=== PATIENT | female | born 1980 | race Caucasian/White ===

== ENCOUNTER → 2019-09-10 11:52 | Outpatient (CLI) | payer OTHER, SELFPAY ==
[2019-09-10 12:37] LABS: Add Manual Diff / Slide Review NO; Basophils Absolute Auto 0 /uL (0-100); Basophils Percent Auto 0.4 % (0-2); Eosinophils Absolute Auto 100 /uL (0-450); Eosinophils Percent Auto 1.1 % (2-4); Hematocrit 36.8 % (36-46); Hemoglobin 12.5 g/dL (12.0-16.0); Lymphocytes Absolute Auto 1800 /uL (1100-4500); Lymphocytes Percent Auto 21.8 % (25-40); Mean Corpuscular Hemoglobin 30.7 PG (26-34); Mean Corpuscular Volume 90.3 fL (80-100); Monocytes Absolute Auto 600 /uL (0-900); Monocytes Percent Auto 7.7 % (3-14); Neutrophils Absolute Auto 5700 /uL (1500-7000); Platelet Count 297 X10^3/uL (150-400); Red Blood Cell Count 4.08 X10^6/uL (4.0-5.2); White Blood Cell Count 8.2 X10^3/uL (4.5-11.0)
[2019-09-10 12:56] LABS: Appearance Urine UA CLEAR; Bilirubin Urine UA NEGATIVE (NEGATIVE); Color Urine UA YELLOW; Glucose Urine UA NEGATIVE (Negative); Ketones Urine UA NEGATIVE (NEGATIVE); Leukocyte Esterase Urine UA NEGATIVE (NEGATIVE); Nitrite Urine UA NEGATIVE (Negative); Occult Blood Urine UA NEGATIVE (Negative); Protein Urine UA NEGATIVE (Negative); Specific Gravity Urine UA 1.015 (1.000-1.035); Urobilinogen Urine UA 0.2 E.U./dL (0.2)
[2019-09-10 17:16] LABS: Hepatitis B Surface Antigen NEGATIVE s/c (NEGATIVE); Rubella Antibody IgG 12.6 IU/mL (>15)
[2019-09-10 17:25] LABS: HIV 1 & 2 Ab/Ag 4th Gen Combo NEGATIVE (NEGATIVE)
[2019-09-10 17:44] LABS: Hep C Virus Ab w/Reflex Quant NEGATIVE s/c (NEGATIVE)
[2019-09-13 21:16] LABS: RPR Screen Nonreactive (Nonreactive)
== END ==
PROVIDERS: Visit Provider Specialist
DX: Z34.01 Encounter for supervision of normal first pregnancy, first trimester (principal)
CPT/HCPCS: 36415; 80055; 81003; 86787; 86803; 86850; 86900; 86901; 87077; 87086; 87389

== ENCOUNTER → 2019-10-10 08:58 | Outpatient (CLI) | payer OTHER, SELFPAY | PROVIDERS: PCP Nurse Practitioner Family; Visit Provider Specialist | DX: O09.519 Supervision of elderly primigravida, unspecified trimester (principal); Z34.91 Encounter for supervision of normal pregnancy, unspecified, first trimester; Z3A.10 10 weeks gestation of pregnancy | CPT/HCPCS: 36415; 81420 ==

== ENCOUNTER → 2020-01-30 10:24 | Outpatient (CLI) | payer OTHER, SELFPAY ==
[2020-01-30 12:16] LABS: Hematocrit 34.3 % (36-46); Hemoglobin 11.5 g/dL (12.0-16.0)
[2020-01-30 13:16] LABS: GTT (PREG) 1 Hour PP 50gm Dose 141 mg/dL (76-139)
== END ==
PROVIDERS: PCP Nurse Practitioner Family; Referring Provider Specialist; Visit Provider Specialist
DX: Z34.82 Encounter for supervision of other normal pregnancy, second trimester (principal)
CPT/HCPCS: 36415; 82950; 85014; 85018

== ENCOUNTER → 2020-02-06 07:55 | Outpatient (CLI) | payer OTHER, SELFPAY ==
[2020-02-06 10:47] LABS: Glucose 2 Hour Gest 98 mg/dL (76-155)
[2020-02-06 10:55] LABS: Glucose 1 Hour Gest 179 mg/dL (76-180)
[2020-02-06 10:56] LABS: Glucose Fasting Gestational 74 mg/dL (76-95)
[2020-02-06 11:12] LABS: Glucose Tol Interp,Gestational INTERPRETATION
[2020-02-06 12:16] LABS: Glucose 3 Hour Gest 95 mg/dL (76-140)
== END ==
PROVIDERS: PCP Nurse Practitioner Family; Referring Provider Specialist; Visit Provider Specialist
DX: O99.810 Abnormal glucose complicating pregnancy (principal)
CPT/HCPCS: 36415; 82951; 82952

== ENCOUNTER → 2020-04-01 14:06 | Outpatient (CLI) | payer OTHER, SELFPAY ==
[2020-04-02 17:10] LABS: Strep Grp B PCR NEG for Grp B Strep
== END ==
PROVIDERS: PCP Nurse Practitioner Family; Visit Provider Specialist
DX: Z34.83 Encounter for supervision of other normal pregnancy, third trimester (principal); Z3A.36 36 weeks gestation of pregnancy
CPT/HCPCS: 87653

== ENCOUNTER 2020-04-30 14:22 | Outpatient (CLI) | payer OTHER, SELFPAY ==
--- NOTE | 2020-04-30 15:41 | PM.OBTRLD ---
Visit Information Visit Information Date of evaluation: 04/30/20 Primary OB Provider: Anisha Duarte Reason for Evaluation: Yes non-stress test non-stress test reason: other (Postdates) [facility] Medical History (Updated 04/30/20 @ 15:42 by Anisha Duarte MD) Abnormal Pap smear of cervix (Resolved ~2003) Anxiety (Acute) Bulging disc (Acute ~09/2013) Chicken pox (Resolved ~1985) Depression (Acute) Surgical History (Updated 09/10/19 @ 10:13 by Sierra Vargas, RN) History of colposcopy (Acute ~2011) [place] teeth removed (Acute ~1998) Family History (Updated 09/10/19 @ 10:10 by Sierra Vargas, LUCIAN) Father Type 2 diabetes mellitus Grandmother Breast cancer Lung cancer Grandmother Dementia Grandfather Cancer Mother Asthma Sister Asthma Social History marital status: unmarried,living together household members: significant other pets and animals: No education level: college (Psych) 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 Patient is scheduled for induction in 3 days. Precautions reviewed. Induction consent form signed OB Disposition: home
== END 2020-04-30 14:45 | disposition home or self-care (01) ==
LOC: LABOR 14:31 → OB 05-04 12:42
PROVIDERS: PCP Nurse Practitioner Family; Referring Provider Specialist; Visit Provider Specialist
DX: O48.0 Post-term pregnancy (principal); Z11.59 Encounter for screening for other viral diseases; Z3A.41 41 weeks gestation of pregnancy
CPT/HCPCS: 59025; 87635; G0378; G0379

== ENCOUNTER → 2020-04-30 15:01 | Outpatient (CLI) | payer OTHER, SELFPAY ==
[2020-05-01 18:32] LABS: COVID19 Sendout Not Detected (Not Detect)
== END ==
PROVIDERS: PCP Nurse Practitioner Family; Visit Provider Physician Assistant
DX: Z11.9 Encounter for screening for infectious and parasitic diseases, unspecified (principal)
CPT/HCPCS: 87635

== ENCOUNTER 2020-05-03 08:08 | Inpatient (IN) | payer OTHER, SELFPAY ==
[2020-05-03 08:59] LABS: Add Manual Diff / Slide Review NO; Basophils Absolute Auto 0 /uL (0-100); Basophils Percent Auto 0.4 % (0-2); Eosinophils Absolute Auto 200 /uL (0-450); Eosinophils Percent Auto 1.5 % (2-4); Hematocrit 36.3 % (36-46); Hemoglobin 12.2 g/dL (12.0-16.0); Lymphocytes Absolute Auto 1600 /uL (1100-4500); Lymphocytes Percent Auto 13.5 % (25-40); Mean Corpuscular HGB Conc 33.7 % (30-36); Mean Corpuscular Hemoglobin 29.8 PG (26-34); Mean Corpuscular Volume 88.5 fL (80-100); Monocytes Absolute Auto 1100 /uL (0-900); Monocytes Percent Auto 9.8 % (3-14); Neutrophils Absolute Auto 8700 /uL (1500-7000); Neutrophils Percent Auto 74.8 % (50-75); Platelet Count 281 X10^3/uL (150-400); White Blood Cell Count 11.6 X10^3/uL (4.5-11.0)
[2020-05-03] MEDS: LACTATED RINGERS 1,000 ML 100 ML IV ×3 (09:00→20:16)
--- NOTE | 2020-05-03 09:02 | P.HPOB_ITS ---
OB HPI Date/Time Date of admission: 05/03/20 Date Patient Seen: 05/03/20 Time Patient Seen: 09:07 History of Present Condition Chief complaint: OBSERVATION OF LABOR : 2 Para: 0 Estimated Date of Delivery: 04/24/20 Estimated Gestational Age (weeks): 41 Narrative: Ernestina Bhakta is a 39 year old female admitted for postdates induction Indications Indication for induction OB: post dates History of Present care: good care, initiated at week # (7), number of visits (12) and pounds weight gain (44) Dating criteria: LMP confirmed by 1st trimester US Ultrasounds: normal mid trimester US Obstetrical complications: none Medical complications: none Preadmission Labs Blood type: O (+) positive -: Antibody screen: negative, GBS status: negative, HBsAG: negative, HIV: negative and RPR/VDLR: negative -: Rubella: not immune and Varicella: immune HCAB: negative Cell-free DNA: Normal male 1 hr GTT: 141 3 hr GTT: 1 hr (179), 2 hr (98) and 3 hr (95) Fasting blood glucose: 74 Evaluation Evaluation Baseline heart rate: 130 Variability: Moderate (11-25) monitor accelerations: Present monitor decelerations: Absent Contraction Frequency (minutes): 0 Category of Tracing: Reactive Cervical dilation (cm): 0 Cervical effacement (%): 80 station: -1 Laboratory results: Laboratory Tests 05/03/20 08:45 WBC 11.6 H RBC 4.10 Hgb 12.2 Hct 36.3 MCV 88.5 MCH 29.8 MCHC 33.7 RDW 14.0 Plt Count 281 Neut % (Auto) 74.8 Lymph % (Auto) 13.5 L [place] % (Auto) 9.8 Eos % (Auto) 1.5 L Baso % (Auto) 0.4 Neut # (Auto) 8700 H Lymph # (Auto) 1600 [place] # (Auto) 1100 H Eos # (Auto) 200 Baso # (Auto) 0 PFSH Medical History (Updated 04/30/20 @ 15:42 by Anisha Duarte MD) Abnormal Pap smear of cervix (Resolved ~2003) Anxiety (Acute) Bulging disc (Acute ~09/2013) Chicken pox (Resolved ~1985) Depression (Acute) Surgical History (Updated 09/10/19 @ 10:13 by Sierra Vargas RN) History of colposcopy (Acute ~2011) [place] teeth removed (Acute ~1998) Family History (Updated 09/10/19 @ 10:10 by Sierra Vargas RN) Father Type 2 diabetes mellitus Grandmother Breast cancer Lung cancer Grandmother Dementia Grandfather Cancer Mother Asthma Sister Asthma Social History marital status: unmarried,living together household members: significant other pets and animals: No education level: college (Psych) 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) current occupational exposures/hazards: No special ruth needs: No leisure activities: exercise (hike) and reading Smoking Status: Former smoker Tobacco: How many years used: 10 second hand exposure: No alcohol intake: former (pre-) substance use type: does not use Meds Home Medications and Allergies Home Medications Medication Instructions Recorded Confirmed Type prenat.vits,marla,pal-jlkr-tdksw 1 tab PO DAILY 09/10/19 04/30/20 History Double Electric breast Pump and #1 each 11/21/19 04/30/20 Rx Supplies Allergies Allergy/AdvReac Type Severity Reaction Status Date / Time No Known Drug Allergies Allergy Verified 04/30/20 13:39 Review of Systems Review of Systems Narrative: Patient denies headaches, scotomata, epigastric pain. No leakage of fluid. Good movement. No contractions. ROS: Yes All systems reviewed with the patient and are negative except as otherwise documented Exam Vital Signs (past 8 hours): Blood pressure 119/72, pulse 72, temperature 36.8? Narrative Exam Narrative: HEENT exam within normal limits. Lungs are clear to auscultation percussion. Heart is regular rate and rhythm no S3-S4 or murmurs. Abdomen is gravid. Fetus is vertex. Extremities with trace edema and nontender. Objective Labs Result Diagrams: 05/03/20 08:45 Labs: Laboratory Results - last 24 hr 05/03/20 08:45 WBC 11.6 H RBC 4.10 Hgb 12.2 Hct 36.3 MCV 88.5 MCH 29.8 MCHC 33.7 RDW 14.0 Plt Count 281 Neut % (Auto) 74.8 Lymph % (Auto) 13.5 L [place] % (Auto) 9.8 Eos % (Auto) 1.5 L Baso % (Auto) 0.4 Neut # (Auto) 8700 H Lymph # (Auto) 1600 [place] # (Auto) 1100 H Eos # (Auto) 200 Baso # (Auto) 0 Assessment and Plan Assessment and Plan Assessment and Plan narrative: 41 week gestation admitted for postdates induction. Anticipate vaginal delivery.
[2020-05-03] MEDS: OXYTOCIN PREMIX 30 UNIT/500 ML PLAST..BAG IV (09:08)
[2020-05-03 09:16] VITALS: BP 119/72
[2020-05-03] MEDS: fentaNYL 100 MCG/2 ML INJ IV (17:01)
--- NOTE | 2020-05-03 17:21 | PM.OBPNLAB ---
Date/Time Date Patient Seen: 05/03/20 Time Patient Seen: 17:21 Pain Control Pain control: tolerating well (But now requesting epidural) Pelvic Exam Dilation (cm): 1 Effacement (%): 80 station: -1 Amniotic membrane status: Intact Comments: Until De Oliveira bulb placed and then she had rupture of membranes for thin meconium-stained fluid Contractions Contractions on admission: regular Monitor mode: External Pitocin rate (mU/min): 21 Contraction frequency (min): 3 Contraction duration (min): 1 Contraction pattern: Regular Contraction intensity: Moderate Status status: Category l Heart Rate Baseline: 130 Monitor Accelerations: Present Monitor Decelerations: Absent Monitor Variability: Moderate Assessment and Plan Assessment: induction ongoing Comments: Patient on Pitocin all day with no significant change in cervix except for perhaps from closed to 1 cm. Patient was finally getting more uncomfortable on 21 milliunits of Pitocin. Decision was made to try to place a De Oliveira bulb. Pitocin was turned off. Patient was given 50 micro g of fentanyl to help with discomfort. The De Oliveira bulb was placed and the balloon inflated with 60 cc of saline. When removing the catheter guide the patient had spontaneous rupture of membranes with thin meconium-stained fluid. Patient is now requesting epidural. Will re-evaluate starting Pitocin after De Oliveira bulb is expelled if not in active labor.
[2020-05-03] MEDS: FENT 2MCG/ML BUPIV 0.125% EPI 200 MCG/100 ML PLAST..BAG 20 MCG EPIDURAL (18:00)
--- NOTE | 2020-05-04 00:47 | PM.OBPNLAB ---
Date/Time Date Patient Seen: 05/04/20 Time Patient Seen: 00:48 Pain Control Pain control: epidural Pelvic Exam Dilation (cm): 6 Effacement (%): 80 station: -2 Amniotic membrane status: Ruptured Contractions Contractions on admission: regular Monitor mode: Internal Pitocin rate (mU/min): 9 Contraction frequency (min): 3 Contraction duration (min): 1 Contraction pattern: Regular Contraction intensity: Moderate Intrauterine tone measurement: 60 Status status: Category ll Heart Rate Baseline: 140 Monitor Accelerations: Present Monitor Decelerations: Late Monitor Variability: Moderate Assessment and Plan Assessment: other ( intolerance of labor, documented adequate contractions without change in cervix) Plan: Comments: Consent form was reviewed with the patient. Risk of damage to internal structures such as bowel, bladder, ureters that could require additional surgery to repair. Risk of infection. Risk of bleeding enough to require blood transfusion, which patient is agreeable to. Consent form signed.
--- NOTE | 2020-05-04 00:50 | PM.PREOP ---
Pre-operative Note COVID-19 COVID-19 status: Negative Result date/Date tested (Pos, Neg/Pending): 04/30/20 Interval Note History & Physical reviewed/Exam performed by Physician: Yes Changes to H&P: No H&P completed within 30 days and has changed as indicated here:: Failure to progress in labor with intolerance of labor
[2020-05-04] MEDS: CEFAZOLIN 2 GM/100 ML FROZ.PIGGY IV (01:25)
--- NOTE | 2020-05-04 01:47 | SUR.OPER ---
Supine on Padded OR bed, head on pillow, safety belt at thigh, arms secured on padded arm boards at <90 degrees abduction. Bump under right buttock. Legs uncrossed with pillow under knees, gel pad to heels, tape over blanket to lower legs.
--- NOTE | 2020-05-04 01:53 | SUR.OPER ---
VIABLE MALE INFANT DELIVERED AT 0140. PLACENTA AND CORD BLOOD TO OB WITH RN.
--- NOTE | 2020-05-04 02:21 | PM.OP.1 ---
Operative Date/Time/Diagnoses Date of procedure: 05/04/20 Time of procedure: 02:22 Pre-op diagnosis: 1st stage arrest with intolerance of labor Post-op diagnosis: same Procedure & Clinicians Procedure: Primary low-transverse section Same procedure as scheduled: Yes Indications: 1st stage arrest with intolerance of labor Surgeon: Anisha Duarte Click Yes if Unassisted: Yes Anesthesia Type: Epidural Operative Notes Findings: Normal tubes, ovaries, uterus. Viable male infant weighing 8 lb with Apgars of 9 and 9 Closure Type: primary Specimen(s): none sent Applied: catheter (De Oliveira) Estimated Blood Loss (mL): 200 Blood products transfused: none Procedure in detail: The patient was brought to the operating room where she underwent a bolus in her epidural for anesthesia. She was placed in a supine position with a left lateral tilt. A De Oliveira catheter was in place. Pulsatile stockings were placed and functional throughout the case. 2 g of Ancef were given IV prior to the incision. Warming was in place. The patient was prepped and draped in usual sterile fashion. A low transverse incision was made with a scalpel and the incision was carried down to the fascial layer which was incised transversely with scissors. The midline attachments are superiorly and inferiorly. Some bleeding was controlled Bovie. The rectus muscles were in the midline and the peritoneal incision was made with no damage to internal structures. The peritoneum was incised and superiorly and inferiorly. Bladder blade was placed and a bladder flap was developed and the bladder held away from the lower uterine segment. An incision was made in the uterus with the scalpel and the incision was extended with stretching. The head was elevated out of the abdomen and with fundal pressure the baby was delivered. The infant was bulb suctioned for clear fluid and handed off to the warmer. Cord blood was collected. The placenta delivered spontaneously with traction. The uterus was cleaned with clean laps. The uterine incision was closed in 2 layers of 0 chromic suture the first a running locking layer the second an imbricating layer. The bladder peritoneum was repaired with 2-0 Vicryl suture. The gutters were cleaned of any remaining fluids and ovaries and tubes were observed to be normal. Adequate hemostasis was noted. The perineum was closed with 2-0 Vicryl suture. The fascia layer was closed with 0 Vicryl suture with 2 stitches. The incision was irrigated and adequate hemostasis noted. The incision was closed with interrupted 3-0 Vicryl sutures and then a subcuticular stitch of 4-0 Vicryl suture. Steri-Strips were placed. The uterus was massaged to remove any clots. The patient went to recovery room in good condition. Counts of instruments and sponges were correct. Complications: none Post-operative Condition: stable Disposition: other ( Center) Plan for aftercare: Routine post section
[2020-05-04 02:22] VITALS: BP 120/66; PULSE 72; RESP 13; O2SAT 100
[2020-05-04 02:26] VITALS: BP 127/73; PULSE 69; RESP 14; O2SAT 99
[2020-05-04 08:16] VITALS: TEMP 37.6
[2020-05-04] MEDS: KETOROLAC 30 MG/ML VIAL IV ×3 (08:16→20:19)
[2020-05-04] MEDS: DOCUSATE 250 MG CAPSULE PO (08:17)
[2020-05-04] MEDS: LANOLIN OINT 7 GM 1 APPLIC TOP (08:17)
--- NOTE | 2020-05-04 09:27 | P.PNOB_ITS ---
Subjective - OB Subjective Patient comments: pain well controlled and tolerating diet [place] baby status: doing well [place] feeding status: exclusively breast feeding Narrative: This patient is postop day 0 status post a primary section for intolerance of induction of labor in the postdates period. The patient reports feeling well this morning with good pain control, tolerated regular diet for breakfast, foot movement and sensation returning. Lochia is moderate. Patient still has De Oliveira catheter in, not gotten out of bed. Date Patient Seen: 05/04/20 Time Patient Seen: 09:56 Exam Vital Signs (past 8 hours): 120/75, HR 74- 05/04/20 02:22 05/04/20 02:26 05/04/20 08:16 Temperature 99.6 F Pulse Rate 72 69 Respiratory Rate 13 14 Blood Pressure 120/66 127/73 Pulse Oximetry 100 99 Oxygen Delivery Method Room Air Const General: cooperative, healthy appearing and comfortable Resp Effort & Inspection: normal respiratory effort Auscultation: clear to auscultation bilaterally Cardio Rate: regular rate Rhythm: regular rhythm GI Inspection: distended (Soft, tympanic) Palpation: soft and No tender Other: Fundus firm, just below U. incision clean, dry, intact, covered by Aquacel. Extrem General: normal to inspection Objective Labs Result Diagrams: 05/03/20 08:45 Labs: Laboratory Results - last 24 hr 05/03/20 08:45 Blood Type O Positive Antibody Screen Negative Assessment & Plan Plan day: 0 plan OB: routine postop care Comments: This patient is recovering well the morning after her section, meeting postoperative goals appropriately. Continue routine postop C- section care. Patient encouraged to come for return of bowel function, counseled on regular instead and Tylenol use with breakthrough opioid. For voiding trial later today. Time Spent With Patient Time: Total time spent is greater than 50% in coordination of care (as documented) at patient's floor/unit and/or counseling patient: Time with patient: less than 15 minutes
[2020-05-04] MEDS: OXYCODONE/ACETAMINOPHEN 5/325 TABLET 2 TAB PO (20:36)
[2020-05-05] MEDS: OXYCODONE/ACETAMINOPHEN 5/325 TABLET 2 TAB PO ×4 (03:38→21:22)
[2020-05-05] MEDS: IBUPROFEN 600 MG TABLET PO ×3 (03:39→17:27)
[2020-05-05 06:14] LABS: Add Manual Diff / Slide Review NO; Basophils Absolute Auto 100 /uL (0-100); Basophils Percent Auto 0.4 % (0-2); Eosinophils Absolute Auto 200 /uL (0-450); Eosinophils Percent Auto 1.4 % (2-4); Hematocrit 29.8 % (36-46); Hemoglobin 10.1 g/dL (12.0-16.0); Lymphocytes Absolute Auto 1900 /uL (1100-4500); Lymphocytes Percent Auto 15.7 % (25-40); Mean Corpuscular HGB Conc 33.9 % (30-36); Mean Corpuscular Hemoglobin 30.1 PG (26-34); Mean Corpuscular Volume 88.9 fL (80-100); Monocytes Absolute Auto 1100 /uL (0-900); Monocytes Percent Auto 9.2 % (3-14); Neutrophils Absolute Auto 8900 /uL (1500-7000); Neutrophils Percent Auto 73.3 % (50-75); Platelet Count 206 X10^3/uL (150-400); Red Blood Cell Count 3.35 X10^6/uL (4.0-5.2); Red Cell Distribution Width 14.2 % (11.6-14.8); White Blood Cell Count 12.2 X10^3/uL (4.5-11.0)
[2020-05-05] MEDS: DOCUSATE 250 MG CAPSULE PO (08:46)
[2020-05-05] MEDS: ACETAMINOPHEN 325 MG TABLET 650 MG PO ×2 (11:29→21:22)
--- NOTE | 2020-05-05 17:11 | P.PNOB_ITS ---
Subjective - OB Subjective Patient comments: no complaints [place] feeding status: exclusively breast feeding Date Patient Seen: 05/05/20 Time Patient Seen: 17:11 Interval history: Post section day 1 Exam Vital Signs (past 8 hours): Blood pressure 131/80, pulse 81, temperature 98.2? Oxygen Delivery Method Room Air Narrative Exam Narrative: Abdomen is soft, nontender. Uterus is firm, mild tenderness. Dressing is clean, dry, intact. Mild lochia. Extremities with trace edema and nontender. Objective Labs Result Diagrams: 05/05/20 06:02 Labs: Laboratory Results - last 24 hr 05/05/20 06:02 WBC 12.2 H RBC 3.35 L Hgb 10.1 L Hct 29.8 L MCV 88.9 MCH 30.1 MCHC 33.9 RDW 14.2 Plt Count 206 Neut % (Auto) 73.3 Lymph % (Auto) 15.[address] [place] % (Auto) 9.2 Eos % (Auto) 1.4 L Baso % (Auto) 0.4 Neut # (Auto) 8900 H Lymph # (Auto) 1900 [place] # (Auto) 1100 H Eos # (Auto) 200 Baso # (Auto) 100 Assessment & Plan Assessment and Plan (1) Delivery by section using transverse incision of lower segment of uterus: Status: Acute (2) Acute blood loss anemia: Status: Acute Plan day: 1 plan OB: routine postop care Time Spent With Patient Time: Total time spent is greater than 50% in coordination of care (as doc umented) at patient's floor/unit and/or counseling patient: Time with patient: less than 15 minutes
[2020-05-06] MEDS: IBUPROFEN 600 MG TABLET PO ×2 (00:48→08:30)
[2020-05-06] MEDS: ACETAMINOPHEN 325 MG TABLET 650 MG PO (04:24)
[2020-05-06] MEDS: OXYCODONE/ACETAMINOPHEN 5/325 TABLET 2 TAB PO ×2 (04:25→08:31)
[2020-05-06 07:00] VITALS: BP 127/73; PULSE 69; RESP 14; TEMP 37.6
[2020-05-06] MEDS: DOCUSATE 250 MG CAPSULE PO (08:31)
--- NOTE | 2020-05-06 09:05 | PM.OBDS.1 ---
Discharge Providers Provider Date of admission: 05/03/20 08:08 Discharge Date: 05/06/20 Primary care physician: LAURA Gee Consults: 05/03/20 08:10 Consult to Anesthesiology Urgent Comment: Consulting Provider: Anesthesiologist Reason for consultation: Epidural Has provider been notified: No 05/04/20 03:13 Consult to Rn Plastic Surgery Routine Comment: Discharge provider: Anisha Duarte MD Summary Hospital Course Date Patient Seen: 05/06/20 Time Patient Seen: 09:06 Procedures: Pitocin induction, epidural catheter, primary low-transverse section Hospital Course: Patient was admitted at 41 weeks for induction for postdates. She was started on Pitocin. She had a De Oliveira bulb placed. She had a 1st stage arrest with intolerance of labor so proceeded with a primary low-transverse section. Patient is ambulatory and tolerating a regular diet. She is passing gas. Her pain is under control. She is urinating without difficulty Peripartum Data Infant Delivery Method: Section (Primary low-transverse section) complications: none [place] 1: Gender: Male Disposition of : home Discharge Diagnosis (1) Delivery by section using transverse incision of lower segment of uterus: Status: Acute (2) Acute blood loss anemia: Status: Acute Status at Discharge Cognitive/behavioral status at discharge: oriented Functional status at discharge: independent ambulation Overall status at discharge: patient is progressing back to baseline Time Spent with Patient Time attestation: Total time spent providing and/or coordinating discharge services: Time spent: Less than 30 minutes Objective Labs Result Diagrams: 05/05/20 06:02 Exam Vital Signs (past 8 hours): Blood pressure 114/67, pulse 70, temperature 97.9? Oxygen Delivery Method Room Air Narrative Exam Narrative: Abdomen is soft, nontender. Uterus is firm, at U, appropriately tender. Dressing is clean, dry, intact. Mild lochia. Extremities without edema and nontender. Patient's blood type is O positive, she is rubella equivalent and will receive rubella vaccine prior to discharge, she received Tdap in the 3rd trimester Discharge Plan Discharge Plan Patient Disposition: Home Discharge orders & Medications Prescriptions: New oxycodone-acetaminophen 5-325 mg Tablet 2 tab PO Q4HR PRN (Reason: Pain, Severe (7-10)) Qty: 40 RF: 0 ibuprofen 600 mg Tablet 600 mg PO Q6HR PRN (Reason: Fever/Mild Pain (1-3)) Qty: 30 RF: 0 Continued prenat.vits,marla,vey-hhwe-dmthr Tablet 1 tab PO DAILY RF: 0 (DME) Double Electric breast Pump and Supplies See Rx Instructions .ROUTE .MEDSUPPLY Qty: 1 RF: 0 Follow up/Referrals: Kandy Reza ARNP [Primary Care Provider] - Anisha Duarte MD [Physician] - 05/19/20 3:00 pm Diet/Activity/Treatments Diet: Regular Activity: Nothing in vagina or lifting over 20 lb for 6 weeks Skin/Wound/Dressing Care Report to your healthcare provider any signs of infection, such as:: chills, fever, increased pain and unusual redness Dressing: Remove dressing in 1 week Discharge Data Primary Care Provider: Kandy Reza
[2020-05-06] MEDS: MEASLES,MUMPS,RUBELLA VACC/PF 0.5 ML VIAL SUBCUT (13:30)
== END 2020-05-06 13:35 | disposition home or self-care (01) | DRG 787 ==
PROVIDERS: Admitting Provider Specialist; PCP Nurse Practitioner Family; Referring Provider Specialist; Visit Provider Specialist
PROC: 10D00Z1 Extraction of Products of Conception, Low, Open Approach (ICD-10-PCS; CPT 59514; principal; 2020-05-04 01:30)
DX: O48.0 Post-term pregnancy (principal); D62 Acute posthemorrhagic anemia; Z3A.41 41 weeks gestation of pregnancy; Z37.0 Single live birth; O99.02 Anemia complicating childbirth; O77.0 Labor and delivery complicated by meconium in amniotic fluid; O62.1 Secondary uterine inertia; O77.9 Labor and delivery complicated by fetal stress, unspecified
CPT/HCPCS: 01967; 01968; 36415; 59050; 59510; 85025; 86850; 86900; 86901; G0379; J0690; J1885; J2274; J2590; J3010

== ENCOUNTER → 2020-06-10 16:20 | Outpatient (CLI) | payer OTHER, SELFPAY ==
[2020-06-10 16:58] LABS: Add Manual Diff / Slide Review NO; Basophils Absolute Auto 0 /uL (0-100); Basophils Percent Auto 0.5 % (0-2); Eosinophils Absolute Auto 700 /uL (0-450); Hematocrit 38.8 % (36-46); Hemoglobin 12.9 g/dL (12.0-16.0); Lymphocytes Absolute Auto 2200 /uL (1100-4500); Mean Corpuscular HGB Conc 33.2 % (30-36); Mean Corpuscular Hemoglobin 29.5 PG (26-34); Mean Corpuscular Volume 88.9 fL (80-100); Monocytes Absolute Auto 600 /uL (0-900); Monocytes Percent Auto 7.8 % (3-14); Neutrophils Absolute Auto 4400 /uL (1500-7000); Neutrophils Percent Auto 55.7 % (50-75); Platelet Count 307 X10^3/uL (150-400); Red Blood Cell Count 4.36 X10^6/uL (4.0-5.2); Red Cell Distribution Width 13.6 % (11.6-14.8)
== END ==
PROVIDERS: PCP Nurse Practitioner Family; Referring Provider Specialist; Visit Provider Specialist
DX: O86.12 Endometritis following delivery (principal); D62 Acute posthemorrhagic anemia; R53.81 Other malaise
CPT/HCPCS: 36415; 85025; 87070; 87205

== ENCOUNTER → 2021-12-22 15:34 | Outpatient (CLI) | payer OTHER, SELFPAY ==
[2021-12-22 16:06] LABS: Appearance Urine UA CLEAR; Bilirubin Urine UA NEGATIVE (NEGATIVE); Color Urine UA YELLOW; Glucose Urine UA NEGATIVE (Negative); Ketones Urine UA NEGATIVE (NEGATIVE); Leukocyte Esterase Urine UA NEGATIVE (NEGATIVE); Nitrite Urine UA NEGATIVE (Negative); Occult Blood Urine UA NEGATIVE (Negative); Protein Urine UA NEGATIVE (Negative); Urobilinogen Urine UA 0.2 E.U./dL (0.2)
[2021-12-22 16:08] LABS: Add Manual Diff / Slide Review NO; Basophils Absolute Auto 0 /uL (0-100); Basophils Percent Auto 0.5 % (0-2); Eosinophils Absolute Auto 100 /uL (0-450); Eosinophils Percent Auto 1.5 % (2-4); Hematocrit 36.6 % (36-46); Hemoglobin 12.6 g/dL (12.0-16.0); Lymphocytes Absolute Auto 2000 /uL (1100-4500); Lymphocytes Percent Auto 21.8 % (25-40); Mean Corpuscular HGB Conc 34.5 % (30-36); Mean Corpuscular Hemoglobin 30.6 PG (26-34); Mean Corpuscular Volume 88.8 fL (80-100); Monocytes Absolute Auto 600 /uL (0-900); Monocytes Percent Auto 6.5 % (3-14); Neutrophils Absolute Auto 6400 /uL (1500-7000); Neutrophils Percent Auto 69.7 % (50-75); Platelet Count 303 X10^3/uL (150-400); Red Blood Cell Count 4.12 X10^6/uL (4.0-5.2); Red Cell Distribution Width 12.8 % (11.6-14.8); White Blood Cell Count 9.2 X10^3/uL (4.5-11.0)
[2021-12-22 17:21] LABS: Hepatitis B Surface Antigen NEGATIVE s/c (NEGATIVE); Rubella Antibody IgG 71.7 IU/mL (>15)
[2021-12-22 17:37] LABS: HIV 1 & 2 Ab/Ag 4th Gen Combo NEGATIVE (NEGATIVE); Hep C Virus Ab w/Reflex Quant NEGATIVE s/c (NEGATIVE)
[2021-12-23 04:46] LABS: Varicella IgG Antibody 493 index (Immune >165)
[2021-12-23 06:42] LABS: RPR Screen Non Reactive (Non Reactive)
== END ==
PROVIDERS: PCP Nurse Practitioner Family; Referring Provider Obstetrics & Gynecology; Visit Provider Obstetrics & Gynecology
DX: Z34.80 Encounter for supervision of other normal pregnancy, unspecified trimester (principal)
CPT/HCPCS: 36415; 80055; 81003; 86787; 86803; 86850; 86900; 86901; 87086; 87389

== ENCOUNTER → 2022-01-19 17:09 | Outpatient (CLI) | payer OTHER, SELFPAY ==
[2022-01-21 20:37] LABS: AFP Value 33.8 ng/mL (.); Gest Age on Col Date 17.1 weeks (.); Gestational Age Ultrasound (.); Insulin Dep Diabetes No (.); OSBR Risk 1IN 10000 (.); Results Report (.); Test Results *Screen Negative* (.)
== END ==
PROVIDERS: PCP Nurse Practitioner Family; Referring Provider Obstetrics & Gynecology; Visit Provider Obstetrics & Gynecology
DX: Z34.82 Encounter for supervision of other normal pregnancy, second trimester (principal); Z3A.16 16 weeks gestation of pregnancy
CPT/HCPCS: 36415; 82105

== ENCOUNTER → 2022-03-17 11:09 | Outpatient (CLI) | payer OTHER, SELFPAY ==
[2022-03-17 12:40] LABS: Hematocrit 33.4 % (36-46); Hemoglobin 11.2 g/dL (12.0-16.0)
[2022-03-17 13:22] LABS: GTT (PREG) 1 Hour PP 50gm Dose 133 mg/dL (76-139)
== END ==
PROVIDERS: PCP Nurse Practitioner Family; Referring Provider Obstetrics & Gynecology; Visit Provider Obstetrics & Gynecology
DX: Z34.82 Encounter for supervision of other normal pregnancy, second trimester (principal); Z3A.26 26 weeks gestation of pregnancy
CPT/HCPCS: 36415; 82950; 85014; 85018

== ENCOUNTER → 2022-06-07 08:57 | Outpatient (CLI) | payer OTHER, SELFPAY ==
[2022-06-08 12:05] LABS: Strep Grp B PCR NEG for Grp B Strep
== END ==
PROVIDERS: PCP Family Medicine; Visit Provider Obstetrics & Gynecology
DX: Z36.85 Encounter for antenatal screening for Streptococcus B (principal); Z3A.36 36 weeks gestation of pregnancy
CPT/HCPCS: 87653

== ENCOUNTER 2022-06-22 07:45 | Inpatient (IN) | payer OTHER, SELFPAY ==
[2022-06-22 08:46] LABS: Add Manual Diff / Slide Review NO; Basophils Absolute Auto 100 /uL (0-100); Basophils Percent Auto 0.5 % (0-2); Eosinophils Absolute Auto 100 /uL (0-450); Eosinophils Percent Auto 0.9 % (2-4); Hematocrit 34.7 % (36-46); Hemoglobin 11.8 g/dL (12.0-16.0); Lymphocytes Absolute Auto 2000 /uL (1100-4500); Lymphocytes Percent Auto 17.3 % (25-40); Mean Corpuscular HGB Conc 33.9 % (30-36); Mean Corpuscular Hemoglobin 29.1 PG (26-34); Monocytes Absolute Auto 800 /uL (0-900); Monocytes Percent Auto 7.3 % (3-14); Neutrophils Absolute Auto 8600 /uL (1500-7000); Platelet Count 266 X10^3/uL (150-400); Red Blood Cell Count 4.04 X10^6/uL (4.0-5.2); White Blood Cell Count 11.6 X10^3/uL (4.5-11.0)
[2022-06-22] MEDS: LACTATED RINGERS 1,000 ML 100 ML IV ×3 (09:04→12:09)
--- NOTE | 2022-06-22 09:16 | PM.OBHP.IH.1 ---
OB HPI Date/Time Date of admission: 06/22/22 Date Patient Seen: 06/22/22 Time Patient Seen: 09:19 History of Present Condition Chief complaint: Repeat C Section NASIR Calculator Estimated Delivery Date Method Current WG Current Estimate 07/01/22 LMP (Certain) 38w 5d Other Estimates 07/02/22 Ultrasound #1 38w 4d Estimated Gestational Age (weeks): 39 : 3 Para: 1 care: good care, initiated at week #, number of visits (10) and pounds weight gain (43) Dating criteria OB: LMP confirmed by 1st trimester US Ultrasounds: normal 1st trimester US and normal mid trimester US Obstetrical complications: none Medical complications OB: none Narrative: AMA Indications Operative indications ( section): previous uterine surgery Preadmission Labs Last OB Lab Results: Blood Type O Positive 12/22/21 15:44 Antibody Screen Negative 12/22/21 15:44 Hematocrit 34.7 % (36-46) L 06/22/22 08:35 Hemoglobin 11.8 g/dL (12.0-16.0) L 06/22/22 08:35 Hepatitis B Surface Antigen Negative s/c (NEGATIVE) 12/22/21 15:44 Hepatitis C Antibody Negative s/c (NEGATIVE) 12/22/21 15:44 Rubella Antibody 71.7 IU/mL (>15) 12/22/21 15:44 Varicella-Zoster IgG Antibody 493 index (Immune >165) 12/22/21 15:44 Glucose 1 Hour 133 mg/dL (76-139) 03/17/22 12:23 Group B Streptococcus (PCR) Neg for grp b strep 06/07/22 08:57 -: Chlamydia screen: negative, Gonorrhea screen: negative and Urine: negative -: PAP smear: Abnormal (ASCUS) Genetic Screens: Cell-free DNA: Normal and Alpha-fetoprotein: Normal External Labs -: Urine: negative Prior (ies) Past Pregnancies Del. Date GA/Weeks Labor Lgth Wt Sex Route Outcome Anesthesia Place Delv Breastfeed Preg Comp Name 05/09/05 8 elective [place] elective 05/04/20 42 10 8 lb Male live - full term epidural IH 18 none Dayday Delivery Date: 05/04/20 Last Updated by: Zoë Jorgensen R.N. Post term by 11 dys, 1st stage arrest with induction, SROM, Meconium staining, then distress Evaluation Evaluation Baseline heart rate: 135 Variability: Moderate (11-25) monitor accelerations: Present Monitor Decelerations: Absent [facility] Medical History Abnormal Pap smear of cervix (~2003) Anxiety Bulging disc (~09/2013) Chicken pox (~1985) Depression Surgical History History of History of colposcopy (~2011) [place] teeth removed (~1998) Family History Father Type 2 diabetes mellitus Grandmother Breast cancer Lung cancer Grandmother Dementia Grandfather Cancer Mother Asthma Sister Asthma Social History marital status: unmarried,living together number of children: 1 household members: significant other and children lives independently: Yes pets and animals: No education level: college (Psych) 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) current occupational exposures/hazards: No special ruth needs: No leisure activities: exercise (hike) and reading seatbelt use: always water heater temp set < 120 deg: Yes working smoke detector in home: Yes fire extinguisher in home: Yes carbon monox detector in home: Yes firearms in home: No do you feel safe at home: Yes Smoking Status: Never smoker Tobacco: How many years used: 10 second hand exposure: No alcohol intake: former (pre-) substance use type: does not use during the past year weight has: decreased > 10 lbs (had baby 18 months ago) well-balanced diet: daily or most days daily servings fruits/ve-4 caffeine: Yes (200mg limit) Type(s) of exercise: walking and irregular exercise Meds Home Medications and Allergies Home Medications Medication Instructions Recorded Confirmed Type prenat.vits,marla,mgx-zewi-gpdlq 1 tab PO DAILY 09/10/19 06/22/22 History Double Electric breast Pump and #1 ea 11/21/19 06/22/22 Rx Supplies Allergies Allergy/AdvReac Type Severity Reaction Status Date / Time No Known Drug Allergies Allergy Verified 06/14/22 07:59 OB Exam Narrative Exam Narrative: Generally: Patient is sitting up in bed, no acute distress Lungs: Clear to auscultation bilaterally Cardiovascular: Regular rate and rhythm Fundal height: 39 cm Estimated weight 7-1/2 lb Extremities: No edema, 1+ DTRs Objective Labs Result Diagrams: 06/22/22 08:35 Labs: Laboratory Results - last 24 hr 06/22/22 08:35 WBC 11.6 H RBC 4.04 Hgb 11.8 L Hct 34.7 L MCV 86.0 MCH 29.1 MCHC 33.9 RDW 14.0 Plt Count 266 Neut % (Auto) 74.0 Lymph % (Auto) 17.3 L [place] % (Auto) 7.3 Eos % (Auto) 0.9 L Baso % (Auto) 0.5 Neut # (Auto) 8600 H Lymph # (Auto) 2000 [place] # (Auto) 800 Eos # (Auto) 100 Baso # (Auto) 100 Assessment and Plan Assessment and Plan Assessment and Plan narrative: Assessment: 42-year-old 3 para 1 at an estimated gestational age of 39 weeks Previous section Plan: Repeat low-transverse section The risks, benefits, and alternatives to the procedure were explained to the patient. The risks including bleeding, infection, injury to the bowel, bladder, or ureters. She understands these risks and agrees to proceed. A full par Q was held and consent form was signed. Time Spent with Patient Total time spent with greater than 50% in coordination of care (as documented) at patient's floor/unit and/or counseling patient:: 15-24 minutes
[2022-06-22 09:41] LABS: COVID19 -Nasal RAPID Negative (Negative)
[2022-06-22] MEDS: CEFAZOLIN 2 GM/100 ML PREMIX 100 ML IV (09:58)
--- NOTE | 2022-06-22 10:30 | SUR.OPER ---
Supine on Padded OR bed, head on pillow, safety belt at thigh, arms secured on padded arm boards at <90 degrees abduction. Bump under right buttock. Legs uncrossed with pillow under knees, gel pad to heels, tape over blanket to lower legs. Gel pad placed under bilateral heels and gel pad between urinary catheter tubing and posterior thigh.
--- NOTE | 2022-06-22 10:30 | SUR.OPER ---
Viable baby girl delivered at 1019. Placenta delivered. Cord blood tubes X2 and placenta given to L&D RN.
[2022-06-22] MEDS: ACETAMINOPHEN IV 1,000 MG/100 ML VIAL 400 MG IV (10:33)
[2022-06-22 11:04] VITALS: BP 127/69; PULSE 58; RESP 16; TEMP 36.6; O2SAT 99
--- NOTE | 2022-06-22 11:10 | P.OP_ITS ---
Operative Date/Time/Diagnoses Date of procedure: 06/22/22 Time of procedure: 11:10 Pre-op diagnosis: Estimated gestational age of 39 weeks Previous section Post-op diagnosis: same Procedure & Clinicians Procedure: Repeat low-transverse section Same procedure as scheduled: Yes Indications: Estimated gestational age of 39 weeks Previous section Surgeon: Becky Mina Click Yes if Unassisted: No Content Management Consultant: Anuel Acosta Reason for Content Management Consultant: The product safety technical assistant was needed for retraction upon entry into the abdomen and uterus. He assisted with fundal pressure on delivery of the infant. He assisted with retraction and cutting of suture upon exiting the uterus and abdomen. He closed the contralateral fascia. Anesthesia Type: Spinal (With Duramorph) Operative Notes Findings: Live female infant in the JULIOCESAR presentation Loose nuchal cord x1 Normal tubes and ovaries Closure Type: primary Specimen(s): cord blood and placenta Intraoperative meds administered: Acetaminophen, Duramorph, Ketorolac and Pitocin Applied: Catheter (To continuous drainage) Estimated Blood Loss (mL): 400 Blood products transfused: none Procedure in detail: The patient was taken to the operating room where she was placed in the seated position. Spinal anesthesia with Duramorph was administered. The patient was then placed in the dorsal supine position with a leftward tilt. She was prepped and draped in the usual sterile fashion. A timeout was performed. After spinal analgesia was found to be adequate, a Pfannenstiel skin incision was made through the previous incision and carried through to the underlying layer fascia. The fascia was nicked in the midline, and the incision extended bilaterally with the Martinez scissors. The superior aspect of the fascial incision was grasped with a Prachi clamps, elevated, and the underlying rectus muscles dissected off sharply and bluntly. Attention was then turned to the inferior aspect of this incision which in a similar fashion was grasped with a Seneca clamps, elevated, and the underlying rectus muscles dissected off sharply and bluntly. The rectus muscles were in the midline. The peritoneum was identified, grasped between 2 hemostats, and entered sharply with the Metzenbaum scissors. This incision was extended superiorly and inferiorly with good visualization of the bladder. The bladder blade was inserted. The vesicouterine peritoneum was identified, grasped with the pickup, and entered sharply with the Metzenbaum scissors. This incision was extended bilaterally, and the bladder flap was created digitally. The bladder blade was reinserted. The lower uterine segment was incised in a transverse fashion with the scalpel. Upon entering the amniotic sac there was moderate amount of clear amniotic fluid. The infant's head was delivered with vacuum assistance. The nose and mouth were suctioned with bulb suction. The remainder of the body delivered without difficulty. The cord was double clamped and cut after 1 minute. The infant was handed off to waiting RN and RT. The placenta was expressed. The uterus was cleared of all clots and debris. The uterine incision was repaired with #1 chromic in a running interlocking fashion, and a second layer the same suture was used for an imbricating layer. There was a small area of bleeding in the middle of the incision. A lagele-rn-ftlof suture was placed for hemostasis. Hemostasis was achieved. The tubes and ovaries were examined and were found to be normal. The gutters were cleared of all clots and debris. The bladder flap was reapproximated using 2-0 Vicryl in a running fashion. The parietal peritoneum was closed using 2-0 Vicryl in a running fashion. The fascia was reapproximated using 0 Vicryl in a running fashion. The subcutaneous layer was copiously irrigated with warm normal saline. 5 simple interrupted sutures of 3- 0 Vicryl were placed to reapproximate the subcutaneous layer. The skin was closed with 4-0 Monocryl in a subcuticular fashion. Steri-Strips were placed. An Aquacel dressing was placed. The uterus was expressed of a small amount of old blood. Sponge, lap, and instrument counts were correct x-2. The patient tolerated the procedure well, and was taken to PACU in stable condition. Complications: none Baby 1: Infant Gender: Female Presentation: vertex Position: Left Occiput Anterior Placental Delivery Description: Expressed Cord Vessel Description: 3 Vessels, Nuchal Cord (X1), Loose, Reduced and Clamped/Cut (After 1 minute) score (1 min): 9 score (5 min): 9 weight: 6 lb 15 oz Post-operative Condition: stable Disposition: PACU Aftercare: routine postop
--- NOTE | 2022-06-22 11:10 | PM.PREOP ---
Pre-operative Note COVID-19 COVID-19 status: Negative Result date/Date tested (Pos, Neg/Pending): 06/22/22 Criteria for continued procedure: Non-surgical alternatives not available or appropriate per current SOC Interval Note History & Physical reviewed/Exam performed by Physician: Yes Changes to H&P: No H&P completed within 30 days and has changed as indicated here:: 06/22/22
[2022-06-22 11:14] VITALS: BP 124/68; PULSE 67; RESP 12; O2SAT 98
[2022-06-22 11:19] VITALS: BP 120/64; PULSE 76; RESP 18; O2SAT 99
[2022-06-22 11:24] VITALS: BP 123/66; PULSE 58; RESP 18; TEMP 36.2; O2SAT 100
[2022-06-22] MEDS: ACETAMINOPHEN 325 MG TABLET 650 MG PO ×2 (17:11→22:05)
[2022-06-22] MEDS: KETOROLAC 30 MG/ML VIAL IV ×2 (17:12→22:05)
[2022-06-23] MEDS: OXYCODONE IR 5 MG TABLET PO ×4 (01:30→13:55)
[2022-06-23] MEDS: ACETAMINOPHEN 325 MG TABLET 650 MG PO ×2 (05:10→11:36)
[2022-06-23] MEDS: KETOROLAC 30 MG/ML VIAL IV (05:11)
[2022-06-23 07:17] LABS: Hematocrit 31.5 % (36-46); Hemoglobin 10.6 g/dL (12.0-16.0)
[2022-06-23] MEDS: PRENATAL VIT,CALC/IRON/FOLIC 1 TABLET 1 TAB PO (09:14)
[2022-06-23] MEDS: DOCUSATE 100 MG CAPSULE 200 MG PO (09:14)
[2022-06-23] MEDS: IBUPROFEN 600 MG TABLET PO (11:35)
[2022-06-23 16:45] VITALS: BP 123/66; PULSE 58; RESP 18; TEMP 36.2
== END 2022-06-23 16:45 | disposition home or self-care (01) | DRG 788 ==
PROVIDERS: Admitting Provider Obstetrics & Gynecology; PCP Family Medicine; Referring Provider Obstetrics & Gynecology; Visit Provider Obstetrics & Gynecology
PROC: 10D00Z1 Extraction of Products of Conception, Low, Open Approach (ICD-10-PCS; CPT 59514; principal; 2022-06-22 09:45)
DX: O34.211 Maternal care for low transverse scar from previous cesarean delivery (principal); Z3A.39 39 weeks gestation of pregnancy; Z37.0 Single live birth; Z20.822 Contact with and (suspected) exposure to COVID-19
CPT/HCPCS: 36415; 59050; 59510; 59514; 85014; 85018; 85025; 86850; 86900; 86901; 87635; C9803; J0131; J0690; J1885; J2274; J2590; J3010

== ENCOUNTER → 2022-07-03 12:24 | Outpatient (CLI) | payer OTHER, SELFPAY ==
[2022-07-03 12:45] LABS: Add Manual Diff / Slide Review NO; Basophils Absolute Auto 0 /uL (0-100); Basophils Percent Auto 0.5 % (0-2); Eosinophils Absolute Auto 200 /uL (0-450); Eosinophils Percent Auto 3.1 % (2-4); Hematocrit 33.8 % (36-46); Hemoglobin 11.1 g/dL (12.0-16.0); Lymphocytes Absolute Auto 1700 /uL (1100-4500); Lymphocytes Percent Auto 21.9 % (25-40); Mean Corpuscular Hemoglobin 28.6 PG (26-34); Mean Corpuscular Volume 86.6 fL (80-100); Monocytes Absolute Auto 500 /uL (0-900); Monocytes Percent Auto 7.2 % (3-14); Neutrophils Absolute Auto 5100 /uL (1500-7000); Neutrophils Percent Auto 67.3 % (50-75); Platelet Count 397 X10^3/uL (150-400); Red Cell Distribution Width 14.2 % (11.6-14.8); White Blood Cell Count 7.6 X10^3/uL (4.5-11.0)
[2022-07-03 14:11] LABS: Alanine Aminotransferase 18 IU/L (<35); Aspartate Aminotransferase 20 IU/L (14-36); BUN Creatinine Ratio 22.9 (6-22); Blood Urea Nitrogen 11 mg/dL (7-17); Estimated Glomerular Filt Rate > 60 mL/min (>60); Uric Acid 4.6 mg/dL (2.5-6.2)
== END ==
PROVIDERS: PCP Family Medicine; Referring Provider Obstetrics & Gynecology; Visit Provider Obstetrics & Gynecology
DX: O16.5 Unspecified maternal hypertension, complicating the puerperium (principal)
CPT/HCPCS: 36415; 82565; 84450; 84460; 84520; 84550; 85025

== ENCOUNTER → 2023-12-31 13:05 | Outpatient (CLI) | payer OTHER, SELFPAY ==
[2023-12-31 14:15] LABS: Natera Collection Specimen Collected
[2023-12-31 14:57] LABS: Add Manual Diff / Slide Review NO; Basophils Absolute Auto 0 /uL (0-100); Basophils Percent Auto 0.3 % (0-2); Eosinophils Absolute Auto 100 /uL (0-450); Eosinophils Percent Auto 1.1 % (2-4); Hematocrit 36.1 % (36-46); Hemoglobin 12.3 g/dL (12.0-16.0); Lymphocytes Absolute Auto 1800 /uL (1100-4500); Lymphocytes Percent Auto 25.7 % (25-40); Mean Corpuscular Hemoglobin 30.2 PG (26-34); Mean Corpuscular Volume 88.7 fL (80-100); Monocytes Absolute Auto 500 /uL (0-900); Monocytes Percent Auto 7.4 % (3-14); Neutrophils Absolute Auto 4700 /uL (1500-7000); Neutrophils Percent Auto 65.5 % (50-75); Platelet Count 312 X10^3/uL (150-400); Red Blood Cell Count 4.07 X10^6/uL (4.0-5.2); Red Cell Distribution Width 13.8 % (11.6-14.8); White Blood Cell Count 7.1 X10^3/uL (4.5-11.0)
[2023-12-31 15:15] LABS: Alanine Aminotransferase 12 IU/L (<35); Aspartate Aminotransferase 18 IU/L (14-36); Blood Urea Nitrogen 8 mg/dL (7-17); Estimated Glomerular Filt Rate > 60 mL/min (>60); Uric Acid 2.7 mg/dL (2.5-6.2)
[2023-12-31 15:22] LABS: Urine N gonorrhoeae NOT DETECTED
[2023-12-31 15:54] LABS: Urine Chlamydia NOT DETECTED
[2023-12-31 16:33] LABS: Hepatitis B Surface Antigen NEGATIVE s/c (NEGATIVE); Rubella Antibody IgG 29.5 IU/mL (>15)
[2023-12-31 16:41] LABS: HIV 1 & 2 Ab/Ag 4th Gen Combo NEGATIVE (NEGATIVE); Hep C Virus Ab w/Reflex Quant NEGATIVE s/c (NEGATIVE)
[2024-01-01 09:15] LABS: RPR Screen Non Reactive (Non Reactive); Varicella IgG Antibody 690 index (Immune >165)
== END ==
LOC: LAB 13:06
PROVIDERS: PCP Family Medicine; Referring Provider Student in an Organized Health Care Education/Training Program; Visit Provider Student in an Organized Health Care Education/Training Program
DX: Z34.80 Encounter for supervision of other normal pregnancy, unspecified trimester (principal)
CPT/HCPCS: 80055; 82565; 84450; 84460; 84520; 84550; 86787; 86803; 86850; 86900; 86901; 87086; 87389; 87491; 87591

== ENCOUNTER → 2024-02-01 11:34 | Outpatient (CLI) | payer OTHER, SELFPAY ==
[2024-02-05 22:04] LABS: Gest Age on Col Date 19.1 weeks (.); Gestational Age EDD (.); Insulin Dep Diabetes No (.); OSBR Risk 1IN 10000 (.); Results Report (.); Test Results *Screen Negative* (.)
== END ==
PROVIDERS: PCP Family Medicine; Referring Provider Student in an Organized Health Care Education/Training Program; Visit Provider Student in an Organized Health Care Education/Training Program
DX: Z34.82 Encounter for supervision of other normal pregnancy, second trimester (principal); Z3A.16 16 weeks gestation of pregnancy
CPT/HCPCS: 36415; 82105

== ENCOUNTER → 2024-06-04 09:44 | Outpatient (CLI) | payer OTHER, SELFPAY | LOC: CAR 09:44 | PROVIDERS: PCP Family Medicine; Referring Provider Student in an Organized Health Care Education/Training Program; Visit Provider Student in an Organized Health Care Education/Training Program | DX: R00.2 Palpitations (principal) | CPT/HCPCS: 93242 ==

== ENCOUNTER → 2024-06-17 08:57 | Outpatient (CLI) | payer OTHER, SELFPAY ==
[2024-06-18 13:29] LABS: Strep Grp B PCR NEG for Grp B Strep
== END ==
PROVIDERS: PCP Family Medicine; Visit Provider Obstetrics & Gynecology
DX: Z34.83 Encounter for supervision of other normal pregnancy, third trimester (principal); Z3A.36 36 weeks gestation of pregnancy
CPT/HCPCS: 87653

== ENCOUNTER 2024-06-24 09:04 | Observation (INO) | payer OTHER, SELFPAY ==
[2024-06-24 10:05] LABS: Add Manual Diff / Slide Review NO; Basophils Absolute Auto 0 /uL (0-100); Basophils Percent Auto 0.3 % (0-2); Eosinophils Absolute Auto 200 /uL (0-450); Eosinophils Percent Auto 1.2 % (2-4); Hematocrit 35.4 % (36-46); Hemoglobin 12.1 g/dL (12.0-16.0); Lymphocytes Absolute Auto 1900 /uL (1100-4500); Lymphocytes Percent Auto 14.2 % (25-40); Mean Corpuscular HGB Conc 34.2 % (30-36); Mean Corpuscular Hemoglobin 30.1 PG (26-34); Monocytes Absolute Auto 1000 /uL (0-900); Monocytes Percent Auto 7.7 % (3-14); Neutrophils Absolute Auto 10200 /uL (1500-7000); Neutrophils Percent Auto 76.6 % (50-75); Platelet Count 286 X10^3/uL (150-400); Red Blood Cell Count 4.02 X10^6/uL (4.0-5.2); Red Cell Distribution Width 14.3 % (11.6-14.8); White Blood Cell Count 13.3 X10^3/uL (4.5-11.0)
[2024-06-24 10:16] LABS: Alanine Aminotransferase 13 IU/L (<35); Albumin 3.3 g/dL (3.5-5.0); Albumin Globulin Ratio 1.1 (1.0-2.8); Alkaline Phosphatase 115 U/L (38-126); Aspartate Aminotransferase 19 IU/L (14-36); BUN Creatinine Ratio 10.3 (6-22); Bilirubin Total 0.3 mg/dL (0.2-1.3); Blood Urea Nitrogen 4 mg/dL (7-17); Calcium 8.4 mg/dL (8.4-10.2); Carbon Dioxide 22 mmol/L (22-32); Chloride 107 mmol/L (98-107); Estimated Glomerular Filt Rate > 60 mL/min (>60); Glucose 83 mg/dL (70-100); HEMOLYSIS < 15 (0-50); Potassium 3.9 mmol/L (3.4-5.1); Sodium 133 mmol/L (137-145); Total Protein 6.3 g/dL (6.3-8.2)
[2024-06-24 10:51] LABS: Creatinine Urine Random 47.29 mg/dL; Protein (Total) Urine Random 10 mg/dL (0-12); Protein Creatinine Ratio Urine 0.21 GRAM/24H
== END 2024-06-24 10:59 | disposition home or self-care (01) ==
PROVIDERS: Admitting Provider Obstetrics & Gynecology; PCP Family Medicine; Referring Provider Obstetrics & Gynecology; Visit Provider Obstetrics & Gynecology
DX: O09.523 Supervision of elderly multigravida, third trimester (principal); Z3A.37 37 weeks gestation of pregnancy
CPT/HCPCS: 36415; 80053; 82570; 84156; 85025; G0378; G0379

== ENCOUNTER 2024-07-01 09:21 | Outpatient (CLI) | payer OTHER, SELFPAY | END 2024-07-01 09:55 | disposition home or self-care (01) | LOC: OB 07-02 10:26 | PROVIDERS: PCP Family Medicine; Referring Provider Obstetrics & Gynecology; Visit Provider Obstetrics & Gynecology | DX: O09.523 Supervision of elderly multigravida, third trimester (principal); Z3A.38 38 weeks gestation of pregnancy | CPT/HCPCS: 59025; G0378; G0379 ==

== ENCOUNTER 2024-07-11 05:41 | Inpatient (IN) | payer OTHER, SELFPAY ==
--- NOTE | 2024-07-11 | PATH_ITS ---
[facility] Accession Number: [id number] No. of containers..01 Tissue . 01 Material submitted: . fallopian tube - BILATERAL FALLOPIAN TUBES . 01 Diagnosis: Fallopian tubes, bilateral salpingectomy: Benign normal fallopian tubes with focal decidualized change of stromal cells. Negative for dysplasia, or malignancy. TXN 07/16/2024 1425 Local . 01 Electronically signed: . Tawfejanet Berry MD, Pathologist NPI- [id number] . 01 Gross description: . Received in formalin with two patient identifiers and bilateral fallopian tubes, are two unoriented fimbriated fallopian tubes (9.0 x 1.0 cm and 8.7 x 0.8 cm, respectively). Both tubes have violaceous smooth serosa with no cysts identified. The lumens are stellate and unremarkable. Harm Reduction Worker sections to include one-half of bisected fimbriae and cross sections are submitted as follows: . A1: Longer fallopian tube. A2: [place] fallopian tube. ([id number]) /MRV 07/15/2024 1716 Local . 01 Pathologist provided ICD-10: Z30.2 . 01 CPT . 462753 Specimen Comment: A courtesy copy of this report has been sent to [facility] Performed at: [address], [place], [place] [id number] MD Ashwin Maurice MD Phone: [phone]
[2024-07-11 06:35] LABS: Add Manual Diff / Slide Review NO; Basophils Absolute Auto 100 /uL (0-100); Basophils Percent Auto 0.4 % (0-2); Eosinophils Absolute Auto 200 /uL (0-450); Eosinophils Percent Auto 1.5 % (2-4); Hematocrit 37.1 % (36-46); Hemoglobin 12.6 g/dL (12.0-16.0); Lymphocytes Absolute Auto 2100 /uL (1100-4500); Lymphocytes Percent Auto 16.6 % (25-40); Mean Corpuscular HGB Conc 33.9 % (30-36); Mean Corpuscular Hemoglobin 30.2 PG (26-34); Mean Corpuscular Volume 89.1 fL (80-100); Monocytes Absolute Auto 900 /uL (0-900); Monocytes Percent Auto 7.5 % (3-14); Neutrophils Absolute Auto 9200 /uL (1500-7000); Platelet Count 274 X10^3/uL (150-400); Red Blood Cell Count 4.16 X10^6/uL (4.0-5.2); Red Cell Distribution Width 14.6 % (11.6-14.8); White Blood Cell Count 12.4 X10^3/uL (4.5-11.0)
[2024-07-11] MEDS: CITRIC ACID/SODIUM CITRATE 15 ML SOLUTION 30 ML PO (07:10)
--- NOTE | 2024-07-11 07:23 | PM.OBHP.1 ---
OB HPI Date/Time Date of admission: 07/11/24 Date Patient Seen: 07/11/24 Time Patient Seen: 07:31 History of Present Condition Chief complaint: Section : 4 Para: 2 Estimated Date of Delivery: 07/13/24 Estimated Gestational Age (weeks): 39w5d Narrative: Ernestina Bhakta is a 44 year old female at 39w5d by early first trimester dating who presents for scheduled procedure, repeat section with undesired fertility. Pt has had regular routine PNC throughout , course notable for symptomatic heart palpitations for which pt underwent prolonged cardiac monitoring revealing intermittent SVT. No medication was started due to paroxysmal nature and patient has been asymptomatic since approximately 36wga with planned cardiology follow-up. PMHx notable for h/o prior CS x3, h/o PIH. Today pt states she is feeling well, denies VB, LOF, dysuria, ctx. Affirms desire to proceed with procedure as scheduled including bilateral salpingectomy for purposes of permanent surgical sterilization. Indications Operative indications ( section): previous uterine surgery (h/o prior CS x2) History of Present care: good care Dating criteria: LMP confirmed by 1st trimester US Ultrasounds: normal 1st trimester US and normal mid trimester US Obstetrical complications: none Medical complications: cardiovascular (paroxysmal SVT) Preadmission Labs Blood type: O (+) positive -: Antibody screen: negative, GBS status: negative, HBsAG: negative, HIV: negative, HSV 1: unknown, HSV 2: unknown and RPR/VDLR: negative -: Chlamydia screen: not detected and Gonorrhea screen: not detected -: Rubella: immune and Varicella: immune HCT: 37.1 HCAB: negative PAP: Normal Cell-free DNA: low-risk, XX 1 hr GTT: 133 Evaluation Evaluation Baseline heart rate: 135 Variability: Moderate (11-25) monitor accelerations: Present Monitor Decelerations: Absent Category of Tracing: Reactive Status: Category l PFSH Medical History (Updated 12/31/23 @ 14:08 by Joycelyn Gerardo DO) Chicken pox (~1985) Abnormal Pap smear of cervix (~2003) Depression Anxiety Bulging disc (~09/2013) Surgical History (Updated 12/07/23 @ 15:11 by Joycelyn Gerardo DO) History of D&C (~2004) History of History of colposcopy (~2011) [place] teeth removed (~1998) Family History (Updated 11/29/23 @ 13:42 by Lisette Ramesh RN) Father Type 2 diabetes mellitus Grandmother Breast cancer Lung cancer Grandmother Dementia Grandfather Metastatic melanoma Heart attack Mother Asthma Environmental allergies Osteoporosis Sister Asthma Social History marital status: unmarried,living together number of children: 2 household members: significant other and children lives independently: Yes caregiver/support person: Yes housing: house pets and animals: No education level: college (bachelor's degree) 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) current occupational exposures/hazards: No special ruth needs: No travel history: recent (domestic only) leisure activities: exercise and reading seatbelt use: always water heater temp set < 120 deg: Yes working smoke detector in home: Yes fire extinguisher in home: Yes carbon monox detector in home: Yes firearms in home: No do you feel safe at home: Yes Smoking Status: Former smoker Tobacco: How many years used: 10 second hand exposure: No alcohol intake: former (occasionally when not ) substance use type: does not use during the past year weight has: decreased > 10 lbs well-balanced diet: daily or most days daily servings fruits/ve-4 caffeine: Yes (1 cup coffee in AM) Type(s) of exercise: walking Meds Home Medications and Allergies Home Medications Medication Instructions Recorded Confirmed Type prenat.vits,marla,tgn-joxx-nhftc 1 tab PO DAILY 09/10/19 07/11/24 History Double Electric breast Pump and #1 ea 11/21/19 07/01/24 Rx Supplies aspirin 81 mg tablet,delayed 81 mg PO DAILY 06/24/24 07/11/24 History release (Adult Aspirin Regimen) Allergies Allergy/AdvReac Type Severity Reaction Status Date / Time No Known Drug Allergies Allergy Verified 07/11/24 06:18 Review of Systems Review of Systems ROS: Yes All systems reviewed with the patient and are negative except as otherwise documented OB Exam Vital signs Blood Pressure: 117/57 Pulse Rate: 65 Respiratory Rate: 18 HENMT Head: normal to inspection and normocephalic Mouth: moist mucous membranes Resp Effort & Inspection: normal respiratory effort and able to speak in complete sentences Cardio Rate: regular rate Extremities Lower extremity: Yes normal to inspection GI Other: gravid, bruna 7.5# cephalic Other: deferred Objective Labs 07/11/24 06:25 07/11/24 06:25 Labs: Laboratory Results - last 24 hr 07/11/24 06:25 WBC 12.4 H RBC 4.16 Hgb 12.6 Hct 37.1 MCV 89.1 MCH 30.2 MCHC 33.9 RDW 14.6 Plt Count 274 Neut % (Auto) 74.0 Lymph % (Auto) 16.6 L [place] % (Auto) 7.5 Eos % (Auto) 1.5 L Baso % (Auto) 0.4 Neut # (Auto) 9200 H Lymph # (Auto) 2100 [place] # (Auto) 900 Eos # (Auto) 200 Baso # (Auto) 100 Assessment and Plan Assessment and Plan Assessment and Plan narrative: 44yo [id number] at 39w5d D=first trimester US presents for scheduled RCS with bilateral salpingectomy Scheduled RCS with bilateral salpingectomy patient affirms desire to proceed with procedure including permanent surgical sterilization maternal VSS/afebrile, Cat 1 tracing CBC, T&S on admission PNL as above, rubella immune, GBS neg h/o maternal SVT antepartum, currently asymptomatic; anesthesia aware Patient is consented for section with bilateral salpingectomy. She additionally consents to transfusion of blood products as medically indicated. dispo: admit for scheduled procedure, anticipate dc to home POD2-3 pending postoperative clinical course Time-Based Coding :: [TOTAL MINUTES] spent with patient and on the chart (including review of chart, obtaining history, exam, reviewing outside data, placing orders, documenting exam and treatment plan, and counseling patient) on [DATE].
--- NOTE | 2024-07-11 07:23 | PM.PREOP ---
Pre-operative Note Interval Note History & Physical reviewed/Exam performed by Physician: Yes Changes to H&P: No H&P completed within 30 days and has changed as indicated here:: 07/11/24 ASA Class (for procedural sedation): II
[2024-07-11 07:48] LABS: Alanine Aminotransferase 15 IU/L (<35); Albumin 3.4 g/dL (3.5-5.0); Albumin Globulin Ratio 1.1 (1.0-2.8); Alkaline Phosphatase 140 U/L (38-126); Aspartate Aminotransferase 31 IU/L (14-36); BUN Creatinine Ratio 15.9 (6-22); Bilirubin Total 0.4 mg/dL (0.2-1.3); Blood Urea Nitrogen 7 mg/dL (7-17); Calcium 8.6 mg/dL (8.4-10.2); Carbon Dioxide 20 mmol/L (22-32); Chloride 107 mmol/L (98-107); Estimated Glomerular Filt Rate > 60 mL/min (>60); Glucose 84 mg/dL (70-100); HEMOLYSIS < 15 (0-50); Potassium 3.8 mmol/L (3.4-5.1); Sodium 134 mmol/L (137-145); Total Protein 6.4 g/dL (6.3-8.2)
[2024-07-11] MEDS: CEFAZOLIN 2 GM/100 ML PREMIX 100 ML IV (07:50)
--- NOTE | 2024-07-11 07:56 | SUR.OPER ---
Supine on padded OR bed, head on pillow, arms secured on padded arm boards at <90 degrees abduction, legs uncrossed, safety belt at thigh, tape over blanket over lower legs.
[2024-07-11 09:01] VITALS: BP 104/49; PULSE 63; RESP 14; TEMP 36.2; O2SAT 99
[2024-07-11 09:06] VITALS: BP 107/65; PULSE 73; RESP 12; O2SAT 99
[2024-07-11 09:10] VITALS: BP 106/61; PULSE 63; RESP 11; O2SAT 100
[2024-07-11 09:16] VITALS: BP 112/55; PULSE 69; RESP 11; O2SAT 97
--- NOTE | 2024-07-11 09:26 | P.OP_ITS ---
Operative Date/Time/Diagnoses Date of procedure: 07/11/24 Time of procedure: 08:00 Pre-op diagnosis: 1) IUP at 39w5d 2) h/o prior CS with indication for repeat 3) undesired fertility Post-op diagnosis: same Procedure & Clinicians Procedure: Repeat low transverse section with bilateral salpingectomy Same procedure as scheduled: Yes Indications: 1) IUP at 39w5d 2) h/o prior CS x2 with indication for repeat 3) undesired fertility, desired permanent surgical sterilization Surgeon: Bobbi Ovalle Bass Singer: Anisha Duarte Click Yes if Unassisted: No Anesthesia Type: Spinal Operative Notes Findings: vigorous liveborn female in cephalic presentation, nuchal cord x1 reduced very thin lower uterine segment grossly normal appearing bilateral adnexae Closure Type: primary Specimen(s): other (bilateral fallopian tubes ) Estimated Blood Loss (mL): 600 Blood products transfused: none Procedure in detail: Pt was taken to the operating room and transferred to OR table.? The spinal was placed per anesthesia.? The patient was placed in the supine position, prepped and draped in a sterile fashion.? Prior to incision the level of anesthesia was rechecked and found to be adequate.? A timeout was once again performed. A pfannensteil incision was made 2cm superior to the pubic symphysis in line with prior scar.? This incision was carried down sharply to the level of the rectus fascia with noted moderate scar consistent with prior procedure.? The fascia was incised sharply with knife and the incision was extended bilaterally and superiorly using albarran scissors. The superior border of the fascia was el evated with two Kiesha clamps and bluntly dissected off of the rectus muscles followed by incision of the median raphe with the knife.? Attention was then turned to the inferior border of the fascia which was dissected away from the underlying musculature in a similar manner down to the level of the pubic symphysis.? The rectus muscles were then in the midline and the peritoneum was identified.? The peritoneum was entered bluntly under direct visualization.? The peritoneal opening was then extended manually as well as with further sharp dissection seconadry to thick midline scar from prior reapproximation of median raphe.? The dye house wheel operator?s hand was inserted in the abdomen and the uterus was found to be in a moderate /dextro-rotated position. The bladder blade was then inserted. The vesicouterine peritoneum was identified, elevated using DeBakey forceps and incised in the midline using Metzenbaum scissors.? The incision was carried laterally and superiorly bilaterally.? A bladder flap was further developed digitally and the bladder blade was replaced.? Next, a low transverse incision was made in the uterus using the knife, noted very thin/tenuous quality of LEENA consistent with prior procedure.? The incision was extended laterally and superiorly bilaterally bluntly.? The dye house wheel operator?s hand was then inserted into the uterus to find an infant in the vertex OT position.? The bladder blade was removed and infant?s vertex was grasped, flexed and brought to the incision where the infant was delivered atraumatically using fundal pressure.? The cord was doubly clamped and cut.? The infant was then passed to waiting pediatricians.? The placenta was delivered via gentle traction with additional manual extraction as necessary; the placenta was then passed off the field.? The uterus was exteriorized and the uterine cavity was wiped of all clots and debris.? The bladder blade was reinserted and the hysterotomy incision was repaired with #0 vicryl in a running locked fashion, followed by a second #0 vicryl in an imbricating fashion.? Tubes, ovaries and adnexae were visualized and noted to be grossly normal in appearance.? Patient verbally affirmed desire to proceed with permanent surgical sterilization at this time and attention was turned to the the right fallopian tube. The fallopian tube was grasped with the bonny and elevated. The fallopian tube was then serially transected away from the mesosalpinx using the PowerSeal ligature device and amputated at the level of the cornua. Attention was then turned to the contralateral side where the same procedure was performed. Wound beds were visually inspected and noted to be hemostatic off of tension. The uterus was replaced into the abdomen without difficulty and the hysterotomy was noted to be hemostatic off of tension.? The rectus fascia was closed using #1 vicryl in a running fashion.? The incision was irrigated and hemostasis was achieved using the bovie.? The subcutaneous space was reapproximated using plain gut suture in a running fashion.? The skin was closed using 4-0 monocryl followed by application of steristrips and abdominal compression dressing.? All counts were correct x2.? The pt tolerated the procedure well and without difficulty. Fundal contents were expressed and fundus noted to be firm, level noted prior to patient transfer to PACU in stable condition.? Birthwgt 3470g, 8/9/7 (TTN, see peds documentation) Complications: none Post-operative Condition: stable Disposition: PACU Plan for aftercare: routine /postop
[2024-07-11] MEDS: ACETAMINOPHEN 325 MG TABLET 650 MG PO ×2 (12:40→18:49)
[2024-07-11] MEDS: KETOROLAC 30 MG/ML VIAL IV ×2 (14:36→20:19)
[2024-07-11 16:59] VITALS: BP 117/57; PULSE 65; RESP 18
[2024-07-12] MEDS: ACETAMINOPHEN 325 MG TABLET 650 MG PO ×5 (00:16→23:49)
[2024-07-12] MEDS: KETOROLAC 30 MG/ML VIAL IV (02:02)
[2024-07-12 07:35] LABS: Hematocrit 28.3 % (36-46); Hemoglobin 9.6 g/dL (12.0-16.0)
[2024-07-12] MEDS: IBUPROFEN 600 MG TABLET PO ×3 (07:45→20:07)
--- NOTE | 2024-07-12 09:10 | PM.OBPN.1 ---
Subjective - OB Subjective Patient comments: no complaints and pain well controlled [place] baby status: doing well and nursing well feeding status: exclusively breast feeding Narrative: 44 yo delivered via rLTCS +tubal ligation at 39w5d. Routine care, course noable for symptomatic heart palpitations for which patient underwent prolonged cardiac monitoring significant for intermittent SVT. No meds started due to paroxysmal nature. Pt has been asymptomatic since 36wks and plans to fu with cardiology . History significant for CSx 2 and pre-eclampsia. Date Patient Seen: 07/12/24 Time Patient Seen: 08:15 Interval history: Patient doing well this AM. Pain well controlled. Mild headache but did not sleep well overnight. Bleeding appropriate. Exam Vital Signs (past 8 hours): Oxygen Delivery Method Room Air Narrative Exam Narrative: NAD, breathing easily, fundus firm below umbilicus. Objective Labs 07/12/24 07:10 07/11/24 06:25 Labs: Laboratory Results - last 24 hr 07/12/24 07:10 Hgb 9.6 L Hct 28.3 L Assessment & Plan Plan day: 1 plan OB: routine postop care Comments: Blood pressures wnl and stable. No signs of pre-eclampsia. Hgb 12.6-->9.6, Hct 37.1-->28.3. Patient lives on [facility], will continue routine postop care and anticipate discharge tomorrow or Sunday. Time-Based Coding :: 30 minutes spent with patient and on the chart (including review of chart, obtaining history, exam, reviewing outside data, placing orders, documenting exam and treatment plan, and counseling patient) on 07/12.
[2024-07-12] MEDS: PRENATAL VIT,CALC/IRON/FOLIC 1 TABLET 1 TAB PO (11:25)
[2024-07-12] MEDS: OXYCODONE IR 5 MG TABLET PO ×2 (15:01→23:50)
[2024-07-13] MEDS: IBUPROFEN 600 MG TABLET PO ×2 (02:46→08:43)
[2024-07-13] MEDS: ACETAMINOPHEN 325 MG TABLET 650 MG PO (06:31)
[2024-07-13] MEDS: PRENATAL VIT,CALC/IRON/FOLIC 1 TABLET 1 TAB PO (08:43)
--- NOTE | 2024-07-13 09:23 | PM.OBDS.1 ---
Discharge Providers Provider Date of admission: 07/11/24 05:41 Discharge Date: 07/13/24 Primary care physician: Servando Peter DO Consults: 07/11/24 11:19 Consult to Senior Cytotechnologist Routine Comment: Discharge provider: Jane Scott MD Summary Hospital Course Date Patient Seen: 07/13/24 Time Patient Seen: 09:00 Diagnoses: S/p repeat delivery; term Hospital Course: 44 yo delivered via rLTCS +tubal ligation at 39w5d. Routine care, course notable for symptomatic heart palpitations for which patient underwent prolonged cardiac monitoring significant for intermittent SVT. No meds started due to paroxysmal nature. Pt has been asymptomatic since 36wks and plans to fu with cardiology . History significant for CSx 2 and pre-eclampsia. Patient recovered well from repeat delivery. Appropriate lochia. Blood pressures normal and stable. No headaches or vision changes. Pain well controlled. Incision clean/dry/intact. Peripartum Data Delivery Method: Section complications: none Status at Discharge Cognitive/behavioral status at discharge: oriented Functional status at discharge: independent ambulation Overall status at discharge: patient is back to baseline Time Spent with Patient Time attestation: Total time spent providing and/or coordinating discharge services: 30 minutes Time spent: Greater than 30 minutes Objective Labs 07/12/24 07:10 07/11/24 06:25 Exam Vital Signs (past 8 hours): Oxygen Delivery Method Room Air Narrative Exam Narrative: NAD. Fundus firm and below umbilicus. Incision clean/dry/intact. Discharge Plan Discharge Plan Patient Disposition: Home Discharge orders & Medications Prescriptions: New ibuprofen 800 mg tablet 800 mg PO Q8H PRN (Reason: pain) Qty: 30 0RF acetaminophen 500 mg capsule 500 mg PO Q6H PRN (Reason: pain) Qty: 30 0RF Continued prenat.vits,marla,ghe-xuld-uxwev Tablet 1 tab PO DAILY Discontinued aspirin [Adult Aspirin Regimen] 81 mg tablet,delayed release (DR/EC) 81 mg PO DAILY No Action (DME) Double Electric breast Pump and Supplies See Rx Instructions .ROUTE .MEDSUPPLY Qty: 1 0RF Rx Instructions: As directed for 99 months. Follow up/Referrals: Bobbi Ovalle MD [Physician] - Visit Report/Discharge Packet Stand Alone Forms: Patient Portal/API, Stroke Signs & Symptoms Discharge Data Primary Care Provider: Servando Peter
[2024-07-13 09:38] VITALS: BP 127/68; PULSE 85; RESP 16; TEMP 36.9
[2024-07-13] MEDS: OXYCODONE IR 5 MG TABLET PO (09:53)
== END 2024-07-13 10:55 | disposition home or self-care (01) | DRG 785 ==
PROVIDERS: Admitting Provider Obstetrics & Gynecology; PCP Family Medicine; Referring Provider Obstetrics & Gynecology; Visit Provider Obstetrics & Gynecology
PROC: 10D00Z1 Extraction of Products of Conception, Low, Open Approach (ICD-10-PCS; CPT 59514; principal; 2024-07-11 07:45)
DX: O34.211 Maternal care for low transverse scar from previous cesarean delivery (principal); Z3A.39 39 weeks gestation of pregnancy; Z37.0 Single live birth; Z30.2 Encounter for sterilization; Z67.40 Type O blood, Rh positive; Z86.79 Personal history of other diseases of the circulatory system; Z87.59 Personal history of other complications of pregnancy, childbirth and the puerperium
CPT/HCPCS: 59050; 80053; 85014; 85018; 85025; 86850; 86900; 86901; J0690; J1100; J1885; J2274; J2405

== ENCOUNTER 2024-08-13 11:13 | Emergency (ER) | payer OTHER, SELFPAY ==
[2024-08-13] VITALS (8 sets, daily range): BP systolic 106–129; BP diastolic 58–76; PULSE 67–73; RESP 14–19; TEMP 36.3; O2SAT 96–97; BMI 32.4
--- NOTE | 2024-08-13 11:29 | EKG_ITS ---
[address] [address] Test Date: 2024-08-13 Pat Name: Ernestina Bhakta Department: [facility] Room: Gender: Female Hospital Food Service Worker: CHRISTELLE : 1980 Requested By: Order Number: [id number] Reading MD: Jake Turcios Measurements Intervals [place] Rate: 66 P: 42 HI: 164 QRS: 48 QRSD: 96 T: 51 QT: 408 QTc: 427 Interpretive Statements Normal sinus rhythm with sinus arrhythmia Electronically Signed On 08-13-2024 19:04:00 PST by Jake Turcios
--- NOTE | 2024-08-13 12:21 | ED_ITS ---
HPI - Arrhythmia/Palpitations General Chief Complaint: Arrhythmia/Palpitations Stated Complaint: sent for an echocardiogram Time Seen by Provider: 08/13/24 11:31 Source: patient Mode of arrival: Ambulatory History of Present Illness HPI narrative: patient sent here by RENETTA Conteh, patient in her office. at bedside. Patient is 4 weeks. Was on nifedipine for high blood pressure after . Was instructed to stop nifedipine. Last dose yesterday. Patient was seen 2 days ago on an grand tower with emergency department for palpitations. At EKG blood work done. Was discharged home for outpatient echocardiogram. Patient is asymptomatic at this time. She was seen at the emergency department 2 days ago for palpitations. She did have bradycardia down in the 40s. No prior history of heart attack strokes or diabetes. Related Data Home Medications Medication Instructions Recorded Confirmed prenat.vits,marla,[id number] 1 tab PO DAILY 09/10/19 08/13/24 Previous Rx's Medication Instructions Recorded Double Electric breast Pump and #1 ea 11/21/19 Supplies nifedipine 30 mg tablet,extended 30 mg PO DAILY #30 tabs 07/16/24 release Allergies Allergy/AdvReac Type Severity Reaction Status Date / Time bee venom protein (honey bee) Allergy Severe Anaphylaxis Verified 08/13/24 11:27 Review of Systems Review of Systems Narrative: GENERAL: Negative chills, fatigue, malaise, fever, sweats. HEENT: Negative sinus pain, ear pain, sore throat RESPIRATORY: Negative dyspnea, cough CARDIOVASCULAR: Negative chest pain, Positivepalpitations GASTROINTESTINAL: Negative nausea, vomiting, abdominal pain : Negative dysuria, frequency, hematuria MUSCULOSKELETAL: Negative muscle or bony pain SKIN: Negative rash, skin lesions NEUROLOGIC: Negative weakness, numbness ROS Unobtainable: All systems reviewed & are unremarkable except as noted in HPI and below Patient History Medical History (Updated 08/13/24 @ 17:19 by Surinder Simon MD) Symptomatic bradycardia Chicken pox (~1985) Abnormal Pap smear of cervix (~2003) Depression Anxiety Bulging disc (~09/2013) Surgical History (Updated 12/07/23 @ 15:11 by Joycelyn Gerardo DO) History of D&C (~2004) History of History of colposcopy (~2011) [place] teeth removed (~1998) Family History (Updated 11/29/23 @ 13:42 by Lisette Ramesh RN) Father Type 2 diabetes mellitus Grandmother Breast cancer Lung cancer Grandmother Dementia Grandfather Metastatic melanoma Heart attack Mother Asthma Environmental allergies Osteoporosis Sister Asthma Social History marital status: unmarried,living together number of children: 2 household members: significant other and children lives independently: Yes caregiver/support person: Yes housing: house pets and animals: No education level: college (bachelor's degree) 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) current occupational exposures/hazards: No special ruth needs: No travel history: recent (domestic only) leisure activities: exercise and reading seatbelt use: always water heater temp set < 120 deg: Yes working smoke detector in home: Yes fire extinguisher in home: Yes carbon monox detector in home: Yes firearms in home: No do you feel safe at home: Yes Smoking Status: Former smoker Tobacco: How many years used: 10 second hand exposure: No alcohol intake: former (occasionally when not ) substance use type: does not use during the past year weight has: decreased > 10 lbs well-balanced diet: daily or most days daily servings fruits/ve-4 caffeine: Yes (1 cup coffee in AM) Type(s) of exercise: walking Smoking Status: Former smoker Substance Use Type: does not use Exam Narrative Exam Narrative: GENERAL: in no distress, not toxic not dyspneic HEAD: Normocephalic. EYES: Pupils equal round ENT: Mucous membranes moist. NECK: Trachea midline. CARDIOVASCULAR: Regular rate and rhythm RESPIRATORY: Clear to auscultation. Breath sounds equal bilaterally. No wheezes, rales, or rhonchi. GASTROINTESTINAL: Abdomen soft, non-tender EXTREMITIES: No gross deformities. no pitting edema of the ankles BACK: No flank tenderness. NEURO: AOx4. SKIN: Warm and dry PSYCH: Not anxious, is cooperative Initial Vital Signs Initial Vital Signs: Vital Signs Temperature 97.4 F L 08/13/24 11:19 Pulse Rate 73 08/13/24 11:19 Respiratory Rate 18 08/13/24 11:19 Blood Pressure 129/61 08/13/24 11:19 Pulse Oximetry 97 08/13/24 11:19 Oxygen Delivery Method Room Air 08/13/24 11:19 Course Orders Ordered: ED Orders 08/13/24 11:29 EKG-12 Lead Stat 08/13/24 12:21 EC echo doppler complete Stat 08/13/24 13:29 BNP [NT-proBNP (BNP-Adult 18+)] Stat Complete Blood Count AUTO DIFF Stat Comprehensive Metabolic Panel Stat Magnesium Stat TSH [Thyroid Stimulating Hormone] Stat Troponin & CK Cardiac Panel Stat Vital Signs Vital signs: Vital Signs - 8 hr 08/13/24 11:19 08/13/24 12:26 08/13/24 12:56 Temperature 97.4 F L Pulse Rate 73 69 70 Respiratory Rate 18 14 Blood Pressure 129/61 116/76 Pulse Oximetry 97 96 97 Oxygen Delivery Method Room Air Room Air 08/13/24 13:00 08/13/24 13:30 08/13/24 14:00 Temperature Pulse Rate 69 67 68 Respiratory Rate Blood Pressure Pulse Oximetry 97 96 97 Oxygen Delivery Method 08/13/24 14:17 08/13/24 14:17 Temperature Pulse Rate 69 Respiratory Rate Blood Pressure 106/58 L Pulse Oximetry 97 Oxygen Delivery Method MDM - Arrhythmia/Palpitations Lab Data 08/13/24 13:29 08/13/24 13:29 Labs: Lab Results 08/13/24 Range/Units 13:29 WBC 8.9 (4.5-11.0) X10^3/uL RBC 4.32 (4.0-5.2) X10^6/uL Hgb 12.5 (12.0-16.0) g/dL Hct 37.7 (36-46) % MCV 87.2 (80-100) fL MCH 28.8 (26-34) PG MCHC 33.1 (30-36) % RDW 13.7 (11.6-14.8) % Plt Count 423 H (150-400) X10^3/uL Neut % (Auto) 62.2 (50-75) % Lymph % (Auto) 24.5 L (25-40) % Davis % (Auto) 8.1 (3-14) % Eos % (Auto) 4.4 H (2-4) % Baso % (Auto) 0.8 (0-2) % Neut # (Auto) 5500 (0672-2712) /uL Lymph # (Auto) 2200 (9969-2877) /uL Davis # (Auto) 700 (0-900) /uL Eos # (Auto) 400 (0-450) /uL Baso # (Auto) 100 (0-100) /uL Sodium 139 (137-145) mmol/L Potassium 4.0 (3.4-5.1) mmol/L Chloride 105 (98-107) mmol/L Carbon Dioxide 25 (22-32) mmol/L BUN 13 (7-17) mg/dL Creatinine 0.64 (0.52-1.04) mg/dL Estimated GFR > 60 (>60) mL/min BUN/Creatinine Ratio 20.3 (6-22) Glucose 104 H (70-100) mg/dL Calcium 9.0 (8.4-10.2) mg/dL Magnesium 1.9 (1.6-2.3) mg/dL Total Bilirubin 0.4 (0.2-1.3) mg/dL AST 27 (14-36) IU/L ALT 29 (<35) IU/L Alkaline Phosphatase 90 (38-126) U/L Total Creatine Kinase 41 (30-135) U/L Troponin I < 0.012 (0.01-0.034) ng/mL NT-Pro-B Natriuret Pep < 20 (<125) pg/mL Total Protein 7.4 (6.3-8.2) g/dL Albumin 4.1 (3.5-5.0) g/dL Globulin 3.3 (1.7-4.1) g/dL Albumin/Globulin Ratio 1.2 (1.0-2.8) TSH 0.248 L (0.47-4.68) uIU/mL [facility] Narrative Medical decision making narrative: patient sent here by Dr. Ovalle, OBGYN, patient in her office. at bedside. Patient is 4 weeks. Was on nifedipine for high blood pressure after . Was instructed to stop nifedipine. Last dose yesterday. Patient was seen 2 days ago on an grand tower with emergency department for palpitations. At EKG blood work done. Was discharged home for outpatient echocardiogram. Patient is asymptomatic at this time. She was seen at the emergency department 2 days ago for palpitations. She did have bradycardia down in the 40s. No prior history of heart attack strokes or diabetes. After history and examEKG and echocardiogram ordered. Medical records requested to be faxed over. Holding on laboratory studies as patient just had lab work done 2 days ago [facility] Medical records reviewed: No recent visit here for this complaint. We did not receive faxed records from the [place] [facility] 2 days ago Differential considered: Includes but not limited to SVT bradycardia arrhythmia CHF Lab Test results independently reviewed as above. Pertinent findings: WBC 8.9 hemoglobin 12.5 hematocrit 37 sodium 139 potassium 4.0 BUN 13 creatinine 0.64 calcium 9.0 troponin less than 0.012 TSH 0.248 , BNP less than 20 Independently reviewed EKG normal sinus rhythm rate [address] elevation or depression Imaging studies independently reviewed: echocardiogram Consultations: I did speak with RENETTA Conteh that sent patient over here for echocardiogram. Echocardiogram was done to rule out CHF 5:[address] Ovalle echocardiogram results. Patient to follow up with thyroid results today as well. 5:12 p.[address].. Spoke with Cardiology Dr. Obrien, she has reviewed echocardiogram it is reassuring sinus bradycardia heart rate 48 -59, normal LV size and wall thickness normal wall motion and LV systolic function. Ejection fraction 55%. Normal chamber sizes Treatments: none indicated Re-evaluations: 5:15 p.m.. Updated patient and results. They are reassuring. No palpitations here. asymptomatic. Return precautions reviewed. exam is reassuring. They desire discharge home. Reviewed with the may need Holter monitoring outpatient basis. They agree. No new medications indicated. Updated patient thyroid studies that could be contributory to palpitations and she can follow up with her primary care as well. Discussion: appropriate for discharge home exam is reassuring. Return precautions reviewed with patient and . Not toxic at discharge. They desire discharge home. Diagnosis: Palpitation Discharge Plan Departure Patient Disposition: Home Clinical Impression: Palpitations Instructions: DI for Palpitations Activity Restrictions/Additional Instructions: your exam and laboratory studies imaging studies are reassuring. Please see your family doctor this week for re-evaluation and schedule Holter monitor for palpitations. Keep well hydrated. Return if worse if any questions or concerns. Prescriptions: No Action nifedipine 30 mg tablet extended release 30 mg PO DAILY Qty: 30 0RF prenat.vits,marla,[id number] Tablet 1 tab PO DAILY (DME) Double Electric breast Pump and Supplies See Rx Instructions .ROUTE .MEDSUPPLY Qty: 1 0RF Rx Instructions: As directed for 99 months. Referrals: [place],Servando L, DO [Primary Care Provider] - Stand Alone Forms: Patient Portal/API/Survey
--- NOTE | 2024-08-13 12:27 | PC.NURSE ---
patient here symone she was sent by her OBgyn for cardiac Echo. She began having s/sx on sunday: really low pulse, pounding pressure in her chest, cough, SOB. The symptoms were persistent all day on sunday and some on sunday. She has been sick lately but was diagnosed with SVT during her and is normally able to get herself out of it with vagal maneuvers. when her pulse is low she reports having normal blood pressure. She was taking nephedipine and was told to stop taking that yesterday. last dose was 1700. She is not currently having symptoms.
[2024-08-13 13:37] LABS: Add Manual Diff / Slide Review NO; Basophils Absolute Auto 100 /uL (0-100); Basophils Percent Auto 0.8 % (0-2); Eosinophils Absolute Auto 400 /uL (0-450); Eosinophils Percent Auto 4.4 % (2-4); Hematocrit 37.7 % (36-46); Hemoglobin 12.5 g/dL (12.0-16.0); Lymphocytes Absolute Auto 2200 /uL (1100-4500); Lymphocytes Percent Auto 24.5 % (25-40); Mean Corpuscular HGB Conc 33.1 % (30-36); Mean Corpuscular Hemoglobin 28.8 PG (26-34); Mean Corpuscular Volume 87.2 fL (80-100); Monocytes Absolute Auto 700 /uL (0-900); Monocytes Percent Auto 8.1 % (3-14); Neutrophils Absolute Auto 5500 /uL (1500-7000); Neutrophils Percent Auto 62.2 % (50-75); Platelet Count 423 X10^3/uL (150-400); Red Blood Cell Count 4.32 X10^6/uL (4.0-5.2); Red Cell Distribution Width 13.7 % (11.6-14.8); White Blood Cell Count 8.9 X10^3/uL (4.5-11.0)
[2024-08-13 13:48] LABS: Alanine Aminotransferase 29 IU/L (<35); Albumin 4.1 g/dL (3.5-5.0); Albumin Globulin Ratio 1.2 (1.0-2.8); Alkaline Phosphatase 90 U/L (38-126); Aspartate Aminotransferase 27 IU/L (14-36); BUN Creatinine Ratio 20.3 (6-22); Bilirubin Total 0.4 mg/dL (0.2-1.3); Blood Urea Nitrogen 13 mg/dL (7-17); Carbon Dioxide 25 mmol/L (22-32); Chloride 105 mmol/L (98-107); Creatine Kinase 41 U/L (30-135); Estimated Glomerular Filt Rate > 60 mL/min (>60); Globulin 3.3 g/dL (1.7-4.1); Glucose 104 mg/dL (70-100); HEMOLYSIS < 15 (0-50); Magnesium 1.9 mg/dL (1.6-2.3); Sodium 139 mmol/L (137-145); Total Protein 7.4 g/dL (6.3-8.2)
[2024-08-13 13:59] LABS: Troponin I < 0.012 ng/mL (0.01-0.034)
[2024-08-13 14:19] LABS: Thyroid Stimulating Hormone 0.248 uIU/mL (0.47-4.68)
--- NOTE | 2024-08-13 14:58 | DI.ECHO.S_ITS ---
[facility]+ [facility] : : [address] : : [place] : : [id number] : : Phone: [phone] Echocardiogram Report + + :Name: HARSHA ESCOBEDO Study Date: 08/13/2024 Height: 65 in : :[facility] ReadingLocation: Weight: 195 lb : : Gender: Female BSA: 2.0 m2 : :: 1980 Age: 44 yrs BP: 100/58 mmHg: :Reason For Study: DYSPNEA : :Ordering Physician: PRISCILA, : :DEREJE Performed By: Amie Ornelas : :Referring: DEREJE FRANCOIS : + + Interpretation Summary Sinus bradycardia. Heart rate is 48-59 bpm. Normal LV size and wall thickness. Normal wall motion and LV systolic function. Ejection fraction is 50-55%. Normal chamber sizes. Mild mitral annular calcification; otherwise no significant valvular abnormalities. Estimated PA systolic pressure is 23 mm Hg assuming RA pressure of 3 mm Hg. NO prior study available for comparison. Procedure: A two-dimensional transthoracic echocardiogram with color flow and Doppler was performed. The study quality was technically adequate. There is no prior echocardiogram noted for this patient. The patient was in sinus bradycardia with heart rates between 48-59 bpm during the exam. Left Ventricle: The left ventricle is normal in size and wall thickness. The ejection fraction is estimated to be 50-55%. Right Ventricle: The right ventricle is normal in size and function. Atria: The left atrial size is normal. Right atrial size is normal. There is no Doppler evidence for an interatrial shunt. Mitral Valve: The mitral valve is normal in structure and function. There is mild mitral regurgitation. Aortic Valve: The aortic valve is trileaflet. The aortic valve opens well. There is no aortic valve stenosis. No aortic regurgitation is present. Tricuspid Valve: The tricuspid valve is normal in structure and function. There is mild tricuspid regurgitation. The right ventricular systolic pressure is estimated to be at least 23 mmHg based on an estimated right atrial pressure of 3 mm Hg. Pulmonic Valve: The pulmonic valve leaflets are thin and pliable; valve motion is normal. There is mild pulmonic regurgitation. Great Vessels: The aortic root is normal size. The dimensions of the ascending aorta are normal. The IVC is of normal diameter and collapses greater than 50% with a sniff. This suggests a low right atrial pressure of 3 mm Hg. Pericardium/ Pleura There is no pericardial effusion. There is no pleural effusion. MMode/2D Measurements & Calculations LVIDd: 5.2 cm LVOT diam: 2.0 cm LVIDs: 3.4 cm Ao root diam: 2.8 cm FS: 34.8 % asc Aorta Diam: 2.8 cm EPSS: 0.78 cm Ao Arch Diam (Prox Trans): 2.4 cm IVSd: 0.85 cm LVPWd: 0.95 cm LV schrader. diameter/BSA (cm/m^2): 2.7 LV sys. diameter/BSA (cm/m^2): 1.7 LA A2 area: 19.6 cm2 RA long axis: 4.2 cm LA A4 area: 18.9 cm2 RA area: 12.3 cm2 LA length (vol): 5.1 cm RA vol: 30.8 ml LA vol: 61.3 ml RA : 15.7 ml/m2 LA vol index: 31.3 ml/m2 IVC diam: 1.8 cm RVD1 (basal): 4.0 cm RVD2 (mid): 3.1 cm TAPSE: 1.6 cm Doppler Measurements & Calculations Ao V2 max: 132.7 cm/sec LVOT Max Chuck: 82.5 cm/sec Ao V2 mean: 90.9 cm/sec LV V1 max P.7 mmHg Ao max P.0 mmHg LV V1 VTI: 16.8 cm Ao mean P.7 mmHg DAGO(I,D): 1.8 cm2 Ao V2 VTI: 30.4 cm DAGO(V,D): 2.0 cm2 sev ratio: 0.55 DAGO indexed to BSA (cm^2/m^2): 0.93 MV E max chuck: 62.5 cm/sec TR max chuck: 222.2 cm/sec MV A max chuck: 42.8 cm/sec TR max P.7 mmHg MV E/A: 1.5 PA V2 max: 78.9 cm/sec Med Peak E' Chuck: 7.1 cm/sec PA V2 mean: 55.1 cm/sec E/E' med: 8.8 PA mean P.3 mmHg Lat Peak E' Chuck: 15.9 cm/sec PA pr(Accel): 5.4 mmHg E/E' lat: 3.9 E/e' average: 6.4 MV dec time: 0.18 sec SV(LVOT): 55.3 ml Electronically signed by: Kacey Obrien M.D. on Reading Physician:08/13/2024 04:10 PM
[2024-08-13 16:34] LABS: NT-proBNP (BNP-Adult 18+) < 20 pg/mL (<125)
== END 2024-08-13 17:26 | disposition home or self-care (01) ==
PROVIDERS: Emergency Provider Emergency Medicine; PCP Family Medicine
DX: R00.2 Palpitations (principal); R00.1 Bradycardia, unspecified
CPT/HCPCS: 80053; 82550; 83735; 83880; 84443; 84484; 85025; 93005; 93306; 99281; 99284